=== PATIENT | female | born 1985 | race Caucasian/White ===

== ENCOUNTER 2018-10-10 00:35 | Inpatient (IN) | payer OTHER ==
[2018-10-10 00:59] VITALS: BMI 39.5
--- NOTE | 2018-10-10 02:16 | PDOC ---
History of Present Illness - General Chief Complaint: Shortness of Breath Stated Complaint: DIFFICULTY BREATHING Time Seen by Provider: 10/10/18 01:27 - History of Present Illness Initial Comments: 10/10/18 02:09 33 yo , 26 wga, confirmed TVUS with h/o asthma, and migraines who p/w SOB. Patient reports acute onset SOB x 1 day. + non-productive cough x 4 days. Reports subjective intermittent fevers x 3 days. Multiple episodes of non bilious, non bloody emesis, and loose watery stools beginning yesterday. Also endorses congestion. Nebulizer treatments today at 1700, and 1915, with no relief. Zithromax with no relief. Patient arrives from [place]. Received 1 g Ceftriaxone this evening. CXR ( 10/09/18) with left perihilar infiltrate. Flu negative. Winch Driver: Dr. Pandey. No complications with . Patient denies DALE, vision change, hematuria, vaginal bleeding/discharge, pelvic pain, CP, urinary complaints, abdominal pain, diarrhea, constipation, hematuria , BPR, lightheadedness, weakness, sensory changes. PMHx: as noted above ROS: as noted SHx: Denies tobacco use, IVDA. Allergies: Pen G- Hives, airway compromise Past History - Past Medical History Allergies/Adverse Reactions: Allergies Allergy/AdvReac Type Severity Reaction Status Date / Time Penicillins Allergy Verified 10/10/18 00:48 Home Medications: Ambulatory Orders Budesonide/Formeterol Fumarate [SYMBICORT 160/4.5mcg -] 1 inh PO BID 10/10/18 Asthma: Yes COPD: No - Suicide/Smoking/Psychosocial Hx Smoking History: Never smoked Review of Systems - Review of Systems Comments:: 10/10/18 02:10 GENERAL/CONSTITUTIONAL: No fever or chills. No weakness. HEAD, EYES, EARS, NOSE AND THROAT: No change in vision. No ear pain or discharge. No sore throat. CARDIOVASCULAR: No chest pain RESPIRATORY:+ cough, and SOB. No wheezing, or hemoptysis. GASTROINTESTINAL: + nausea, vomiting, diarrhea. No constipation. GENITOURINARY: No dysuria, frequency, or change in urination. MUSCULOSKELETAL: No joint or muscle swelling or pain. No neck or back pain. SKIN: No rash NEUROLOGIC: No headache, vertigo, loss of consciousness, or change in strength/ sensation. ENDOCRINE: No increased thirst. No abnormal weight change HEMATOLOGIC/LYMPHATIC: No anemia, easy bleeding, or history of blood clots. ALLERGIC/IMMUNOLOGIC: No hives or skin allergy. *Physical Exam - Vital Signs Last Vital Signs Temp Pulse Resp BP Pulse Ox 97.8 F 103 H 20 127/69 94 L 10/10/18 00:44 10/10/18 00:44 10/10/18 00:44 10/10/18 00:44 10/10/18 00:49 - Physical Exam Comments: 10/10/18 02:10 GENERAL: Awake, alert, and fully oriented, in no acute distress HEAD: No signs of trauma, normocephalic, atraumatic EYES: PERRLA, EOMI, sclera anicteric, conjunctiva clear ENT: Hearing grossly normal, nares patent, oropharynx clear without exudates. Moist mucosa NECK: Normal ROM, supple, no lymphadenopathy, JVD, or masses LUNGS: Diffuse exp rhonci/wheezing. Breathing labored. Speaks full sentences. HEART: Regular rate and rhythm, normal S1 and S2, no murmurs, rubs or gallops, peripheral pulses normal and equal bilaterally. ABDOMEN: Soft, nontender, normoactive bowel sounds. No guarding, no rebound. No masses. Neg CVA ttp. EXTREMITIES : Normal inspection, Normal range of motion, no edema. No clubbing or cyanosis. SKIN: Warm, Dry, normal turgor, no rashes or lesions noted Moderate Sedation - Procedure Monitoring Vital Signs: Procedure Monitoring Vital Signs Temperature 97.8 F 10/10/18 00:44 Pulse Rate 103 H 10/10/18 00:44 Respiratory Rate 20 10/10/18 00:44 Blood Pressure 127/69 10/10/18 00:44 O2 Sat by Pulse Oximetry (%) 94 L 10/10/18 00:49 ED Treatment Course - LABORATORY CBC & Chemistry Diagram: 10/10/18 02:55 10/10/18 02:55 Medical Decision Making - Medical Decision Making 10/10/18 02:29 33 yo , 26 wga, confirmed TVUS with h/o asthma, and migraines who p/w SOB, and non productive cough x 5 days. HR 103, 94 %O2 on RA, vitals otherwise wnl, AF, A&Ox3. Possible PNA with underlying acute asthma exacerbation. No evidence fluid/volume overload. Winch Driver Dr. Pandey. Ed Course: CBC, CMP, T&S, BHCG Call L&D for monitoring 4530 L&D contacted. Patient pending monitoring. Left Perihilar infiltrate seen on film 10/10/18 04:01 FHR 120-160's, lower midline 10/10/18 04:15 Microblogged symphony Per symphony patient will be admitted to [facility] unit Called [facility] crop nutrition scientist Dr. Harris [phone]. Awaiting call back. 10/10/18 04:[address] Pandey [phone].Dr. Mariano crop nutrition scientist. Awaiting call back Pt. Endorsed to Dr. Mariano 10/10/18 05:18 Patient will go to medicine unit. Accepted to medicine Dr. Chavis. *DC/Admit/Observation/Transfer Diagnosis at time of Disposition: Pneumonia affecting Qualifiers: Trimester: second trimester Qualified Code(s): O99.512 - Diseases of the respiratory system complicating , second trimester - Discharge Dispostion Condition at time of disposition: Stable Decision to Admit order: Yes - Referrals - Patient Instructions Additional Instructions: Please return to the emergency department with any new or worsening symptoms or concerns. Please follow up with your primary care physician within 72 hours. - Post Discharge Activity - Attestations Physician Attestion: 10/10/18 02:10 I attest to the information provided in this note.
[2018-10-10] MEDS ORDERED: ALBUTEROL SO4 2.5/IPRATROPIUM 0.5 INH SOL 3 ML VIAL.NEB. NEB ONE ×3 (02:27→05:59)
[2018-10-10 03:03] LABS: HEMATOCRIT 35.1 % (32.4-45.2); HEMOGLOBIN 12.4 GM/dL (10.7-15.3); LYMPH % 6.8 % (8-40); MCH 29.1 pg (25.7-33.7); MCHC 35.2 g/dl (32.0-36.0); MEAN CELL VOLUME 82.6 fl (80-96); MEAN PLT VOLUME 8.9 fl (7.5-11.1); NEUT % 92.2 % (42.8-82.8); PLATELET COUNT 124 K/MM3 (134-434); RBC 4.25 M/mm3 (3.60-5.2); WHITE BLOOD COUNT 5.7 K/mm3 (4.0-10.0)
[2018-10-10 03:17] LABS: INR 1.05 (0.83-1.09); PROTHROMBIN TIME (PATIENT) 12.4 SEC (9.7-13.0)
[2018-10-10 03:28] LABS: ALBUMIN 2.7 g/dl (3.4-5.0); ALK PHOS 67 U/L (45-117); ANION GAP 10 MMOL/L (8-16); BILIRUBIN,TOTAL 0.3 mg/dL (0.2-1); BLOOD UREA NITROGEN 6 mg/dL (7-18); CALCIUM 7.8 mg/dL (8.5-10.1); CHLORIDE 104 mmol/L (98-107); CO2 20 mmol/L (21-32); CREATININE 0.6 mg/dL (0.55-1.3); GLUCOSE,RANDOM 170 mg/dL (74-106); POTASSIUM 3.7 mmol/L (3.5-5.1); SGOT/AST 24 U/L (15-37); SGPT/ALT 30 U/L (13-61); SODIUM 134 mmol/L (136-145)
[2018-10-10 03:54] LABS: PLATELET ESTIMATE DECREASED
--- NOTE | 2018-10-10 03:54 | PDOC ---
Attending Attestation - Resident Resident Name: Trent Eden - ED Attending Attestation I have performed the following: I have examined & evaluated the patient, The case was reviewed & discussed with the resident, I agree w/resident's findings & plan, Exceptions are as noted - HPI HPI: 10/10/18 03:54 33F 26w preg sent from [facility] 12/14 PNA. Pt complaining of cough, sob, subj fevers for several days. Found to have a L perihilar pna on cxr at [place] - Physicial Exam PE: 10/10/18 03:55 Agree with exam as documented by the resident - Medical Decision Making 10/10/18 03:56 No acute OB issue, isolated CAP given Ctx by [facility]. Pt refusing repeat CXR here Will have L and D record heart tracing in ED for admission per primary physician
[2018-10-10] MEDS ORDERED: MAGNESIUM SULF 50% (8.12 MEQ/2 ML-1 GM VIAL) IVPB ONE (05:36)
[2018-10-10] MEDS ORDERED: CEFTRIAXONE 1,000 MG in DEXTROSE 5%-WATER - 50 ML IVPB ONE (05:47)
--- NOTE | 2018-10-10 05:50 | HP ---
CHIEF COMPLAINT: SOB, asthma exacerbation PCP: HISTORY OF PRESENT ILLNESS: 33 yo female with PMH Asthma, 26 weeks , presents with complaint of SOB that began 4 days ago. She states she has also had a nonproductive cough, with episodes of nausea and vomiting as well. She states that she has had intermittent fevers and chills over the last few days as well. The pt presented to [facility] emergency department initially was worked up and evaluated prior to presentation to our emergency department. Upon arrival pt was SOB in bed with audible wheezing. She states that she is feeling better than earlier, however became very SOB upon walking to the bathroom. She currently denies any chest pain or abdominal pain. ER course was notable for: (1) CXR from [facility] reviewed, possible infiltrate on the left (2) Afebrile, WBC wnl (3) Recent Travel: none PAST MEDICAL HISTORY: Asthma, 26 wks (uncomplicated so far) PAST SURGICAL HISTORY: Social History: Smoking: Denies Alcohol: Denies Drugs: Denies Family History: Allergies Penicillins Allergy (Verified 10/10/18 00:48) HOME MEDICATIONS: Home Medications Medication Instructions Recorded Budesonide/Formeterol Fumarate 1 inh PO BID 10/10/18 [SYMBICORT 160/4.5mcg -] REVIEW OF SYSTEMS CONSTITUTIONAL: Absent: fever, chills, diaphoresis, generalized weakness, malaise, loss of appetite, weight change HEENT: Absent: rhinorrhea, nasal congestion, throat pain, throat swelling, difficulty swallowing, mouth swelling, ear pain, eye pain, visual changes CARDIOVASCULAR: Absent: chest pain, syncope, palpitations, irregular heart rate, lightheadedness , peripheral edema RESPIRATORY: cough, shortness of breath dyspnea with exertion wheezing, Absent:, orthopnea, stridor, hemoptysis GASTROINTESTINAL: nausea, vomiting, diarrhea, Absent: abdominal pain, abdominal distension, constipation, melena, hematochezia GENITOURINARY: Absent: dysuria, frequency, urgency, hesitancy, hematuria, flank pain, genital pain MUSCULOSKELETAL: Absent: myalgia, arthralgia, joint swelling, back pain, neck pain SKIN: Absent: rash, itching, pallor HEMATOLOGIC/IMMUNOLOGIC: Absent: easy bleeding, easy bruising, lymphadenopathy, frequent infections ENDOCRINE: Absent: unexplained weight gain, unexplained weight loss, heat intolerance, cold intolerance NEUROLOGIC: Absent: headache, focal weakness or paresthesias, dizziness, unsteady gait, seizure, mental status changes, bladder or bowel incontinence PSYCHIATRIC: Absent: anxiety, depression, suicidal or homicidal ideation, hallucinations. PHYSICAL EXAMINATION Vital Signs - 24 hr 10/10/18 10/10/18 10/10/18 00:44 00:49 05:17 Temperature 97.8 F Pulse Rate 103 H Pulse Rate [ 96 H Apical] Respiratory 20 18 Rate Blood Pressure 127/69 Blood Pressure 114/50 L [Left Arm] O2 Sat by Pulse 94 L 94 L 98 Oximetry (%) GENERAL: Awake, alert, and fully oriented, in mild respiratory distress. HEAD: Normal with no signs of trauma. EYES: Pupils equal, round and reactive to light, sclera anicteric, conjunctiva clear. EARS, NOSE, THROAT: oropharynx clear without exudates. Moist mucous membranes. LUNGS: Diffuse expiratory wheezes noted HEART: Regular rate and rhythm, normal S1 and S2 without murmur ABDOMEN: Soft, nontender, not distended, normoactive bowel sounds, consistent with 26 wk LOWER EXTREMITIES: warm, well-perfused. No calf tenderness NEUROLOGICAL: Cranial nerves II-XII grossly intact. Normal speech Laboratory Results - last 24 hr 10/10/18 10/10/18 10/10/18 02:55 02:55 02:55 WBC 5.7 RBC 4.25 Hgb 12.4 Hct 35.1 MCV 82.6 MCH 29.1 MCHC 35.2 RDW 16.0 H Plt Count 124 L MPV 8.9 Absolute Neuts (auto) 5.3 Neutrophils % 92.2 H Neutrophils % (Manual) 90.3 H Band Neutrophils % 1.9 Lymphocytes % 6.8 L Lymphocytes % (Manual) 4.9 L Monocytes % 1.0 L Monocytes % (Manual) 3 L Eosinophils % 0.0 Eosinophils % (Manual) 0.0 Basophils % 0.0 Basophils % (Manual) 0.0 Myelocytes % (Man) 0 Promyelocytes % (Man) 0 Blast Cells % (Manual) 0 Nucleated RBC % 0 Metamyelocytes 0 Platelet Estimate Decreased PT with INR 12.40 INR 1.05 Sodium 134 L Potassium 3.7 Chloride 104 Carbon Dioxide 20 L Anion Gap 10 BUN 6 L Creatinine 0.6 Creat Clearance w eGFR > 60 Random Glucose 170 H Calcium 7.8 L Total Bilirubin 0.3 AST 24 ALT 30 Alkaline Phosphatase 67 Total Protein 6.0 L Albumin 2.7 L Blood Type Antibody Screen 10/10/18 02:55 WBC RBC Hgb Hct MCV MCH MCHC RDW Plt Count MPV Absolute Neuts (auto) Neutrophils % Neutrophils % (Manual) Band Neutrophils % Lymphocytes % Lymphocytes % (Manual) Monocytes % Monocytes % (Manual) Eosinophils % Eosinophils % (Manual) Basophils % Basophils % (Manual) Myelocytes % (Man) Promyelocytes % (Man) Blast Cells % (Manual) Nucleated RBC % Metamyelocytes Platelet Estimate PT with INR INR Sodium Potassium Chloride Carbon Dioxide Anion Gap BUN Creatinine Creat Clearance w eGFR Random Glucose Calcium Total Bilirubin AST ALT Alkaline Phosphatase Total Protein Albumin Blood Type O POSITIVE Antibody Screen Negative ASSESSMENT/PLAN: 33 yo female with PMH Asthma, 26 weeks , presents with complaint of SOB that began 4 days ago. She states she has also had a nonproductive cough, with episodes of nausea and vomiting as well. Acute Asthma Exacerbation -CXR from [facility] reviewed with possible infiltrate on left, Afebrile, WBC wnl -States she usually only requires her ventolin nebs when she has a URI -Azithromycin 500 mg IV Daily, Rocephin -2gm IV Mag Sulfate -Ventolin NEBs Q4 SEAN -SoluMedrol 80 mg IV Daily, will await further pulmonology recs -Sputum cultures -Pulmonology consult 26 wks - uncomplicated thus far Prophylaxis -Heparin 5000 units SQ TID FEN -none -monitor and replete -Regular diet Disposition Med/Surg Visit type - Emergency Visit Emergency Visit: Yes ED Registration Date: 10/10/18 Care time: The patient presented to the Emergency Department on the above date and was hospitalized for further evaluation of their emergent condition. - New Patient This patient is new to me today: Yes Date on this admission: 10/10/18 - Critical Care Critical Care patient: No
[2018-10-10] MEDS ORDERED: HEPARIN NA (PORCINE) 5,000 UNITS/ML 1ML VIAL SQ SCH (06:15)
--- NOTE | 2018-10-10 06:38 | PN ---
Teaching Attending Note Name of Resident: Dennis Manzo ATTENDING PHYSICIAN STATEMENT I saw and evaluated the patient. I reviewed the resident's note and discussed the case with the resident. I agree with the resident's findings and plan as documented. SUBJECTIVE: Please see resident note for further historical information; pt seen and examined at bedside. She is a ER to ER transfer from [facility] for CAP. She is hemodynamically stable and afebrile but requiring 2L O2. In summation she is 26 weeks and she developed a cough and SOB. She is asthmatic and is on inhaled steroid at home. She got azithromycin for this and continued to get worse so she went to the [facility] ER. She was transferred her for OB services. No compromise, etc. noted. She was wheezy and short of breath here. She got azithromycin at [facility]; will be given cef and azithro here. CURB 65 is 0 for the PNA but given the resulting hyperreactive airways from this she will need admitted. She just moved to the area and is interested in getting a pulomary specialist. Spoke with OBGYN and they are OK with our treatment plan. Will consult them. 10 sys ROS done and negative aside from HPI PMH and PSH reviewed FH asked and noncontributory Socially she denies smoking drinking and drugs and works at [facility] OBJECTIVE: NAD, resting in bed on 2L O2 via NC, VSS RRR s1/2 no mgr Lungs with scattered wheezes but acceptable air movement throughout NT; 26 wks, nontender CN2-12 wnl Speaking in complete sentences Pleasant mood with appropriate behavior Outside CXR from [facility] shows L-perihilar infiltrate consistent with PNA; reviewed image personally alongside their report. Labs reviewed ASSESSMENT AND PLAN: Mrs. Desai presents with CAP and asthma exacerbation; she is 26 weeks 1) CAP -L-hilar infiltrate noted; cultures pending for sputum and blood. IV ceftriaxone and azithro. Check flu and urine Ag -Incentive spirometry -Monitor on floor; PRN O2 (now 2L) 2) Acute asthma exacerbation -Likely driven by #1; no PFTs available -Consulting pulmonary medicine; she doesn't have a local museum specialist -Steroids (80 IV q6h), Albuterol. Giving a 2g infusion of magnesium -Could be made worse by -Monitor work of breathing; check ABG 3) -Consult OB; 26 weeks. Defer mangement to them. 4) Thrombocytopenia -SCDs for AC; monitor for OB related complications, check hepatitis C and HIV pannel -If worsens consider heme consult Full Code
--- NOTE | 2018-10-10 08:06 | CON.OBG ---
Consult - History of Present Illness History of Present Illness: Patient with chief complaint of shortness of breath. Patient denies leakage of fluid, vaginal bleeding or contractions. She reports normal movement. She was seen by Dr. Pandey yesterday in the office. 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 Right Hand. LEEP - Alcohol/Substance Use Hx Alcohol Use: No History of Substance Use: reports: None - Smoking History Smoking history: Never smoked Home Medications - Allergies Allergies/Adverse Reactions: Allergies Allergy/AdvReac Type Severity Reaction Status Date / Time Penicillins Allergy Verified 10/10/18 00:48 - Home Medications Home Medications: Ambulatory Orders Budesonide/Formeterol Fumarate [SYMBICORT 160/4.5mcg -] 1 inh PO BID 10/10/18 Family Disease History - Family Disease History Family History: Denies Review of Systems - Review of Systems Constitutional: reports: No Symptoms Cardiovascular: reports: Shortness of Breath Respiratory: reports: SOB, Wheezing Gastrointestinal: reports: Nausea, Vomiting Genitourinary: reports: No Symptoms Neurological: reports: No Symptoms Endocrine: reports: No Symptoms 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 Vital Signs: Vital Signs Temperature 97.8 F 10/10/18 00:44 Pulse Rate 96 H 10/10/18 05:17 Respiratory Rate 18 10/10/18 05:17 Blood Pressure 114/50 L 10/10/18 05:17 O2 Sat by Pulse Oximetry (%) 98 10/10/18 05:17 Constitutional: Yes: Well Nourished, Mild Distress (respiratory distress) HENT: Yes: WNL Cardiovascular: Yes: Regular Rate and Rhythm Respiratory: Yes: Wheezes Gastrointestinal: Yes: Soft Vaginal Exam: Yes: Normal Uterus: Yes: Other (soft, gravid, nontender; + FH by doppler) Edema: No Psychiatric: Yes: Alert, Oriented Labs: CBC, BMP 10/10/18 02:55 10/10/18 02:55 Assessment/Plan 33 yo HD # 1 admitted for pneuomnia and asthma exacerbation 1. No acute obstetrical complaints at this time - no need for obstetrical intervention 2. Reviewed labor precautions - she will let us know if she is having any issues 3. Plan for daily FH checks 4. Will continue to monitor
[2018-10-10 08:15] LABS: BASO % 0.1 % (0-2.0); HEMATOCRIT 35.1 % (32.4-45.2); HEMOGLOBIN 11.5 GM/dL (10.7-15.3); LYMPH % 7.9 % (8-40); MCH 27.3 pg (25.7-33.7); MCHC 32.9 g/dl (32.0-36.0); MEAN PLT VOLUME 8.8 fl (7.5-11.1); MONO % 2.1 % (3.8-10.2); NEUT % 89.9 % (42.8-82.8); PLATELET COUNT 126 K/MM3 (134-434); RBC 4.23 M/mm3 (3.60-5.2); RDW 15.6 % (11.6-15.6); WHITE BLOOD COUNT 5.7 K/mm3 (4.0-10.0)
[2018-10-10 08:43] LABS: ARTERIAL BLD GAS O2 SATURATION 97.9 % (90-98.9); ARTERIAL BLOOD GAS BASE EXCESS -3.4 meq/l (-2-2); ARTERIAL BLOOD GAS PCO2 29.9 mmHg (35-45); ARTERIAL BLOOD GAS pH 7.43 (7.35-7.45)
[2018-10-10 08:45] LABS: ALLENS TEST POSITIVE
[2018-10-10 08:56] LABS: ANION GAP 10 MMOL/L (8-16); BLOOD UREA NITROGEN 7 mg/dL (7-18); CALCIUM 7.9 mg/dL (8.5-10.1); CHLORIDE 105 mmol/L (98-107); CO2 20 mmol/L (21-32); CREATININE 0.5 mg/dL (0.55-1.3); GLUCOSE,RANDOM 140 mg/dL (74-106); MAGNESIUM 2.1 mg/dL (1.8-2.4); PHOSPHOROUS 2.4 mg/dL (2.5-4.9); POTASSIUM 3.8 mmol/L (3.5-5.1); SODIUM 135 mmol/L (136-145)
[2018-10-10] MEDS: ALBUTEROL SO4 0.083% IH SOL 2.5 MG/3 ML VIAL.NEB. NEB SCH ×4 (08:59→20:38)
[2018-10-10] MEDS: methylPREDNISolone NA SUCC 40 MG/1 ML VIAL IVPUSH SCH ×3 (09:01→21:07)
[2018-10-10] MEDS ORDERED: cefTRIAXone SODIUM 1 GM VIAL ONE (09:54)
[2018-10-10] MEDS ORDERED: DEXTROSE 5%-WATER - 50 ML IVPB ONE (09:54)
[2018-10-10] MEDS ORDERED: methylPREDNISolone NA SUCC 40 MG/1 ML VIAL IVPUSH SCH (10:00)
[2018-10-10] MEDS: AZITHROMYCIN IVPB 500 MG/250 ML BAG IVPB SCH (10:55)
[2018-10-10] MEDS: CEFTRIAXONE 1 GM in DEXTROSE 5%-WATER - 50 ML IVPB SCH (10:55)
--- NOTE | 2018-10-10 11:15 | CON.PULM ---
Consult Consult Specialty:: PULM/CCM Referred by:: Ebenezer Reason for Consultation:: SOB - History of Present Illness Chief Complaint: SOB History of Present Illness: 33 F, , 26 weeks gestation. History of Asthma since childhood. Last AE was 4 years ago. Never intubated. Unknown PEF. Not steroid dependent. Well maintained on Symbicort 160/4.5, Albuterol PRN. Never required or worked up for a biologic agent. Subjective fevers x 3 days, non bilious/non bloody emesis. Went to [facility] and apparently found to have a left perihilar infiltrate on CXR. She received Rocephin and Zithromax. Was in [place] 1 month ago. No VTE history. No hemoptysis. No specific history consistent with OSAS. 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 Right Hand. LEEP - Alcohol/Substance Use Hx Alcohol Use: No History of Substance Use: reports: None - Smoking History Smoking history: Never smoked Have you smoked in the past 12 months: No Home Medications - Allergies Allergies/Adverse Reactions: Allergies Allergy/AdvReac Type Severity Reaction Status Date / Time Penicillins Allergy Verified 10/10/18 00:48 - Home Medications Home Medications: Ambulatory Orders Budesonide/Formeterol Fumarate [SYMBICORT 160/4.5mcg -] 1 inh PO BID 10/10/18 Review of Systems - Review of Systems Constitutional: reports: Chills, Fever, Loss of Appetite, Malaise, Weakness. denies: Night Sweats, Unintentional Wgt. Loss Eyes: reports: No Symptoms HENT: reports: No Symptoms Neck: reports: No Symptoms Cardiovascular: reports: Shortness of Breath. denies: Chest Pain, Edema, Palpitations Respiratory: reports: Cough, PND, Snoring, SOB, SOB on Exertion, Wheezing. denies: Hemoptysis Gastrointestinal: reports: Diarrhea, Nausea, Vomiting. denies: Rectal Bleeding , Vomiting Blood Genitourinary: reports: No Symptoms Breasts: reports: No Symptoms Reported Musculoskeletal: reports: No Symptoms Integumentary: reports: No Symptoms Neurological: reports: No Symptoms Endocrine: reports: No Symptoms Hematology/Lymphatic: reports: No Symptoms Psychiatric: reports: No Symptoms Physical Exam Vital Sings: Vital Signs Temperature 97.8 F 10/10/18 00:44 Pulse Rate 96 H 10/10/18 05:17 Respiratory Rate 18 10/10/18 05:17 Blood Pressure 114/50 L 10/10/18 05:17 O2 Sat by Pulse Oximetry (%) 98 10/10/18 05:17 Constitutional: Yes: No Distress, Obese Eyes: Yes: Conjunctiva Clear, EOM Intact HENT: Yes: Atraumatic, Normocephalic Neck: Yes: Supple, Trachea Midline Cardiovascular: Yes: Tachycardia Respiratory: Yes: Cough, Diminished, On Nasal O2, Rhonchi, SOB, SOB on Exertion , Tachypnea, Wheezes. No: Accessory Muscle Use, Rales, Stridor ...Inspection: Yes: WNL ...Clubbing: No Gastrointestinal: Yes: Normal Bowel Sounds, Soft Renal/: Yes: WNL Musculoskeletal: Yes: WNL Extremities: Yes: WNL Edema: No Peripheral Pulses WNL: Yes Integumentary: Yes: WNL Neurological: Yes: WNL, Alert, Oriented ...Motor Strength: WNL Psychiatric: Yes: WNL, Alert, Oriented Labs: CBC, BMP 10/10/18 08:00 10/10/18 08:00 ABG Results ABG pH 7.43 (7.35-7.45) 10/10/18 08:30 ABG pCO2 at Pt Temp 29.9 mmHg (35-45) L 10/10/18 08:30 ABG pO2 at Pt Temp 107.0 mmHg (80-100) H 10/10/18 08:30 ABG HCO3 19.5 meq/L (22-26) L 10/10/18 08:30 ABG O2 Sat (Measured) 97.9 % (90-98.9) 10/10/18 08:30 ABG O2 Content 16.3 % vol (15-22) 10/10/18 08:30 ABG Base Excess -3.4 meq/l (-2-2) L 10/10/18 08:30 Problem List - Problems (1) Acute exacerbation of mild persistent extrinsic asthma Code(s): J45.31 - MILD PERSISTENT ASTHMA WITH (ACUTE) EXACERBATION (2) Pneumonia affecting Code(s): O99.519 - DISEASES OF THE RESP SYS COMP , UNSP TRIMESTER; J18.9 - PNEUMONIA, UNSPECIFIED ORGANISM Qualifiers: Trimester: second trimester Qualified Code(s): O99.512 - Diseases of the respiratory system complicating , second trimester; J18.9 - Pneumonia, unspecified organism Assessment/Plan Check sputum Check urine antigen O2 to maintain saturation >95% BD TX Medrol Agree with [place]hin/Zithromax VTE prophylaxis Daily PEF No smoking I am not concerned for hypercapnia so will not order an ABG Will follow Thank you Dr Brito
--- NOTE | 2018-10-10 11:15 | PN ---
Progress Note, Physician Chief Complaint: Mrs Desai says she is still short of breath but is much better. No cp or n/v. - Current Medication List Current Medications: Active Medications Albuterol Sulfate (Ventolin 0.083% Nebulizer Soln -) 1 amp NEB RQ4H SEAN Last Admin: 10/10/18 08:59 Dose: 1 amp Azithromycin (Zithromax 500mg Ivpb (Pre-Docked)) 500 mg in 250 mls @ 250 mls/ hr IVPB DAILY SEAN Ceftriaxone Sodium 1 gm/ (Dextrose) 50 mls @ 100 mls/hr IVPB DAILY SEAN Methylprednisolone Sodium Succinate (Solu-Medrol -) 80 mg IVPUSH Q6H-IV SEAN Last Admin: 10/10/18 09:01 Dose: 80 mg - Objective Vital Signs: Vital Signs Temperature 36.6 C 10/10/18 00:44 Pulse Rate 96 H 10/10/18 05:17 Respiratory Rate 18 10/10/18 05:17 Blood Pressure 114/50 L 10/10/18 05:17 O2 Sat by Pulse Oximetry (%) 98 10/10/18 05:17 Constitutional: Yes: Well Nourished, No Distress, Calm Cardiovascular: Yes: Regular Rate and Rhythm. No: Gallop, Murmur, Rub Respiratory: Yes: Regular, On Nasal O2, Rhonchi (slight, bibasilar). No: CTA Bilaterally, Rales, Wheezes Gastrointestinal: Yes: Normal Bowel Sounds, Soft. No: Distention, Tenderness Extremities: Yes: WNL Edema: No Labs: CBC, BMP 10/10/18 08:00 10/10/18 08:00 INR, PTT INR 1.05 (0.83-1.09) 10/10/18 02:55 Problem List - Problems (1) Acute exacerbation of mild persistent extrinsic asthma Assessment/Plan: -case d/w pulmonary -continue steroids, antibiotics, and ventolin -improving Code(s): J45.31 - MILD PERSISTENT ASTHMA WITH (ACUTE) EXACERBATION (2) Pneumonia affecting Assessment/Plan: -community acquired -currently afebrile -continue rocephin and zithromax -obstetrics following and appreciate assistance Code(s): O99.519 - DISEASES OF THE RESP SYS COMP , UNSP TRIMESTER; J18.9 - PNEUMONIA, UNSPECIFIED ORGANISM Qualifiers: Trimester: second trimester Qualified Code(s): O99.512 - Diseases of the respiratory system complicating , second trimester; J18.9 - Pneumonia, unspecified organism
--- NOTE | 2018-10-10 11:58 | EKG ---
Test Reason : Blood Pressure : / mmHG Vent. Rate : 097 BPM Atrial Rate : 097 BPM P-R Int : 120 ms QRS Dur : 086 ms QT Int : 378 ms P-R-T Axes : 023 065 004 degrees QTc Int : 480 ms NORMAL SINUS RHYTHM NONSPECIFIC ST AND T WAVE ABNORMALITY PROLONGED QT ABNORMAL ECG NO PREVIOUS ECGS AVAILABLE Confirmed by HUBERT COELLO MD ([id number]) on 10/10/2018 11:57:56 AM Referred By: Confirmed By:HUBERT COELLO MD
[2018-10-11] MEDS: methylPREDNISolone NA SUCC 40 MG/1 ML VIAL IVPUSH SCH ×4 (02:30→21:04)
[2018-10-11 06:07] LABS: HEP.C VIRUS AB 0.1 s/co ratio (0.0-0.9)
[2018-10-11 06:55] LABS: BASO % 0.2 % (0-2.0); HEMATOCRIT 34.5 % (32.4-45.2); HEMOGLOBIN 11.3 GM/dL (10.7-15.3); LYMPH % 9.3 % (8-40); MCH 27.3 pg (25.7-33.7); MCHC 32.6 g/dl (32.0-36.0); MEAN CELL VOLUME 83.6 fl (80-96); MEAN PLT VOLUME 8.9 fl (7.5-11.1); MONO % 3.3 % (3.8-10.2); NEUT % 87.2 % (42.8-82.8); PLATELET COUNT 134 K/MM3 (134-434); RBC 4.13 M/mm3 (3.60-5.2); RDW 15.9 % (11.6-15.6); WHITE BLOOD COUNT 7.7 K/mm3 (4.0-10.0)
[2018-10-11] MEDS: ALBUTEROL SO4 0.083% IH SOL 2.5 MG/3 ML VIAL.NEB. NEB SCH ×5 (07:19→20:36)
[2018-10-11 07:37] LABS: ANION GAP 9 MMOL/L (8-16); BLOOD UREA NITROGEN 8 mg/dL (7-18); CHLORIDE 107 mmol/L (98-107); CO2 22 mmol/L (21-32); CREATININE 0.6 mg/dL (0.55-1.3); GLUCOSE,RANDOM 158 mg/dL (74-106); MAGNESIUM 2.3 mg/dL (1.8-2.4); PHOSPHOROUS 2.6 mg/dL (2.5-4.9); POTASSIUM 4.1 mmol/L (3.5-5.1); SODIUM 138 mmol/L (136-145)
[2018-10-11] MEDS ORDERED: cefTRIAXone SODIUM 1 GM VIAL ONE (09:15)
[2018-10-11] MEDS ORDERED: DEXTROSE 5%-WATER - 50 ML IVPB ONE (09:15)
[2018-10-11] MEDS: CEFTRIAXONE 1 GM in DEXTROSE 5%-WATER - 50 ML IVPB SCH (09:34)
[2018-10-11] MEDS: AZITHROMYCIN IVPB 500 MG/250 ML BAG IVPB SCH (09:34)
--- NOTE | 2018-10-11 11:14 | PN ---
Progress Note (short form) - Note Progress Note: PULMONARY OOB TO CHAIR PRESENT MILD DYSPNEA WITH COUGH VSS/AFEBRILE ANICTERIC END EXP WHEEZE ANTERIOR/POSTERIOR S1S2 BS+/26TH WEEK PREG NO EDEMA LABS/MEDS/NOTES/MICRO REVIEWED (1) Acute exacerbation of mild persistent extrinsic asthma Code(s): J45.31 - MILD PERSISTENT ASTHMA WITH (ACUTE) EXACERBATION (2) Pneumonia affecting Code(s): O99.519 - DISEASES OF THE RESP SYS COMP , UNSP TRIMESTER; J18.9 - PNEUMONIA, UNSPECIFIED ORGANISM Qualifiers: Trimester: second trimester Qualified Code(s): O99.512 - Diseases of the respiratory system complicating , second trimester; J18.9 - Pneumonia, unspecified organism Assessment/Plan O2 to maintain saturation >95% BD TX Medrol IV same dose Agree with Rocpehin/Zithromax VTE prophylaxis Daily PEF Will follow Malvin PALENCIA MD
--- NOTE | 2018-10-11 11:52 | PN ---
Progress Note, Physician Chief Complaint: Mrs Desai says she is feeling better. Having better air movement but wheezing. No cp or n/v. - Current Medication List Current Medications: Active Medications Albuterol Sulfate (Ventolin 0.083% Nebulizer Soln -) 1 amp NEB RQID [facility] Last Admin: 10/11/18 07:20 Dose: 1 amp Azithromycin (Zithromax 500mg Ivpb (Pre-Docked)) 500 mg in 250 mls @ 250 mls/ hr IVPB DAILY [facility] Last Admin: 10/11/18 09:34 Dose: 250 mls/hr Ceftriaxone Sodium 1 gm/ (Dextrose) 50 mls @ 100 mls/hr IVPB DAILY [facility] Last Admin: 10/11/18 09:34 Dose: 100 mls/hr Methylprednisolone Sodium Succinate (Solu-Medrol -) 80 mg IVPUSH Q6H-IV [facility] Last Admin: 10/11/18 09:34 Dose: 80 mg - Objective Vital Signs: Vital Signs Temperature 36.3 C L 10/11/18 09:41 Pulse Rate 93 H 10/11/18 09:41 Respiratory Rate 20 10/11/18 10:00 Blood Pressure 129/61 10/11/18 09:41 O2 Sat by Pulse Oximetry (%) 100 10/11/18 10:00 Constitutional: Yes: Well Nourished, No Distress, Calm Cardiovascular: Yes: Regular Rate and Rhythm. No: Gallop, Murmur, Rub Respiratory: Yes: Regular, On Nasal O2, Wheezes. No: CTA Bilaterally, Rales, Rhonchi Gastrointestinal: Yes: Normal Bowel Sounds, Soft. No: Distention, Tenderness Extremities: Yes: WNL Edema: No Labs: CBC, BMP 10/11/18 06:20 10/11/18 06:20 INR, PTT INR 1.05 (0.83-1.09) 10/10/18 02:55 Problem List - Problems (1) Acute exacerbation of mild persistent extrinsic asthma Code(s): J45.31 - MILD PERSISTENT ASTHMA WITH (ACUTE) EXACERBATION (2) Pneumonia affecting Code(s): O99.519 - DISEASES OF THE RESP SYS COMP , UNSP TRIMESTER; J18.9 - PNEUMONIA, UNSPECIFIED ORGANISM Qualifiers: Trimester: second trimester Qualified Code(s): O99.512 - Diseases of the respiratory system complicating , second trimester; J18.9 - Pneumonia, unspecified organism Assessment/Plan (1) Acute exacerbation of mild persistent extrinsic asthma Assessment/Plan: -pulmonary note reviewed -continue steroids, antibiotics, and ventolin -improving Code(s): J45.31 - MILD PERSISTENT ASTHMA WITH (ACUTE) EXACERBATION (2) Pneumonia affecting Assessment/Plan: -community acquired -afebril x24 hours -rocephin and zithromax day 2 -change to oral antibiotics when ready for discharge Code(s): O99.519 - DISEASES OF THE RESP SYS COMP , UNSP TRIMESTER; J18.9 - PNEUMONIA, UNSPECIFIED ORGANISM Qualifiers: Trimester: second trimester Qualified Code(s): O99.512 - Diseases of the respiratory system complicating , second trimester; J18.9 - Pneumonia, unspecified organism
--- NOTE | 2018-10-11 19:41 | PN ---
Progress Note (short form) - Note Progress Note: ob folow up 830 am feels better today , has no shortness of breath, no wheeze , coughing good fm, no contraction, no bleeding heart present Last Vital Signs Temp Pulse Resp BP Pulse Ox 97.5 F L 69 18 129/69 100 10/11/18 15:21 10/11/18 15:21 10/11/18 17:31 10/11/18 15:21 10/11/18 17:31 CBC, BMP 10/11/18 06:20 10/11/18 06:20 impression asthma ,improving, no hypoxia plan cont. present regimen heart auscultation daily
[2018-10-11] MEDS ORDERED: PT OWN MED DRAWER 7, Y5N ONE (21:01)
[2018-10-11] MEDS: MELATONIN 1 MG TABLET PO PRN (22:07)
[2018-10-12] MEDS: methylPREDNISolone NA SUCC 40 MG/1 ML VIAL IVPUSH SCH ×4 (02:50→22:25)
[2018-10-12] MEDS ORDERED: ALBUTEROL SO4 0.083% IH SOL 2.5 MG/3 ML VIAL.NEB. NEB ONE (03:11)
[2018-10-12 08:22] LABS: BASO % 0.1 % (0-2.0); HEMATOCRIT 34.9 % (32.4-45.2); HEMOGLOBIN 11.4 GM/dL (10.7-15.3); LYMPH % 10.8 % (8-40); MCH 27.5 pg (25.7-33.7); MCHC 32.8 g/dl (32.0-36.0); MEAN CELL VOLUME 83.9 fl (80-96); MONO % 2.5 % (3.8-10.2); NEUT % 86.6 % (42.8-82.8); PLATELET COUNT 143 K/MM3 (134-434); RBC 4.16 M/mm3 (3.60-5.2); RDW 16.2 % (11.6-15.6); WHITE BLOOD COUNT 9.5 K/mm3 (4.0-10.0)
[2018-10-12] MEDS: ALBUTEROL SO4 0.083% IH SOL 2.5 MG/3 ML VIAL.NEB. NEB SCH ×4 (08:42→19:40)
[2018-10-12] MEDS ORDERED: cefTRIAXone SODIUM 1 GM VIAL ONE (08:44)
[2018-10-12] MEDS ORDERED: DEXTROSE 5%-WATER - 50 ML IVPB ONE (08:44)
[2018-10-12 08:52] LABS: ANION GAP 12 MMOL/L (8-16); BLOOD UREA NITROGEN 11 mg/dL (7-18); CALCIUM 8.4 mg/dL (8.5-10.1); CHLORIDE 106 mmol/L (98-107); CO2 21 mmol/L (21-32); CREATININE 0.8 mg/dL (0.55-1.3); GLUCOSE,RANDOM 137 mg/dL (74-106); MAGNESIUM 2.2 mg/dL (1.8-2.4); PHOSPHOROUS 3.4 mg/dL (2.5-4.9); POTASSIUM 4.2 mmol/L (3.5-5.1); SODIUM 138 mmol/L (136-145)
[2018-10-12] MEDS: AZITHROMYCIN IVPB 500 MG/250 ML BAG IVPB SCH (09:51)
[2018-10-12] MEDS: CEFTRIAXONE 1 GM in DEXTROSE 5%-WATER - 50 ML IVPB SCH (09:51)
--- NOTE | 2018-10-12 11:26 | PN ---
Progress Note (short form) - Note Progress Note: PULMONARY OOB TO CHAIR COUGH/WITH CHEST TIGHTNESS IMPROVED BUT PERSISTS VSS/AFEBRILE ANICTERIC END EXP WHEEZE ANTERIOR/POSTERIOR S1S2 BS+/26TH WEEK PREG NO EDEMA LABS/MEDS/NOTES/MICRO REVIEWED (1) Acute exacerbation of mild persistent extrinsic asthma Code(s): J45.31 - MILD PERSISTENT ASTHMA WITH (ACUTE) EXACERBATION (2) Pneumonia affecting Code(s): O99.519 - DISEASES OF THE RESP SYS COMP , UNSP TRIMESTER; J18.9 - PNEUMONIA, UNSPECIFIED ORGANISM Qualifiers: Trimester: second trimester Qualified Code(s): O99.512 - Diseases of the respiratory system complicating , second trimester; J18.9 - Pneumonia, unspecified organism Assessment/Plan O2 to maintain saturation >95% BD TX Medrol IV dose reduced Rocpehin/Zithromax VTE prophylaxis Will follow Malvin PALENCIA MD
--- NOTE | 2018-10-12 12:33 | PN ---
Progress Note, Physician Chief Complaint: Mrs Desai says she is improving. Says her cough is less and the wheezing is resolving. No cp or n/v. - Current Medication List Current Medications: Active Medications Albuterol Sulfate (Ventolin 0.083% Nebulizer Soln -) 1 amp NEB RQID [facility] Last Admin: 10/12/18 12:00 Dose: 1 amp Azithromycin (Zithromax 500mg Ivpb (Pre-Docked)) 500 mg in 250 mls @ 250 mls/ hr IVPB DAILY [facility] Last Admin: 10/12/18 09:51 Dose: 250 mls/hr Ceftriaxone Sodium 1 gm/ (Dextrose) 50 mls @ 100 mls/hr IVPB DAILY [facility] Last Admin: 10/12/18 09:51 Dose: 100 mls/hr Melatonin (Melatonin) 3 mg PO HS PRN PRN Reason: INSOMNIA Last Admin: 10/11/18 22:07 Dose: 3 mg Methylprednisolone Sodium Succinate (Solu-Medrol -) 40 mg IVPUSH Q6H-IV [facility] - Objective Vital Signs: Vital Signs Temperature 36.5 C 10/12/18 06:00 Pulse Rate 82 10/12/18 06:00 Respiratory Rate 20 10/12/18 06:00 Blood Pressure 120/76 10/12/18 06:00 O2 Sat by Pulse Oximetry (%) 100 10/11/18 22:00 Constitutional: Yes: Well Nourished, No Distress, Calm Cardiovascular: Yes: Regular Rate and Rhythm. No: Gallop, Murmur, Rub Respiratory: Yes: Regular, CTA Bilaterally, On Nasal O2. No: Rales, Rhonchi, Wheezes Gastrointestinal: Yes: Normal Bowel Sounds, Soft. No: Distention, Tenderness Extremities: Yes: WNL Edema: No Labs: CBC, BMP 10/12/18 08:00 10/12/18 08:00 INR, PTT INR 1.05 (0.83-1.09) 10/10/18 02:55 Problem List - Problems (1) Acute exacerbation of mild persistent extrinsic asthma Code(s): J45.31 - MILD PERSISTENT ASTHMA WITH (ACUTE) EXACERBATION (2) Pneumonia affecting Code(s): O99.519 - DISEASES OF THE RESP SYS COMP , UNSP TRIMESTER; J18.9 - PNEUMONIA, UNSPECIFIED ORGANISM Qualifiers: Trimester: second trimester Qualified Code(s): O99.512 - Diseases of the respiratory system complicating , second trimester; J18.9 - Pneumonia, unspecified organism Assessment/Plan (1) Acute exacerbation of mild persistent extrinsic asthma Assessment/Plan: -pulmonary note reviewed -continue steroids, antibiotics, and ventolin -steroids tapered today Code(s): J45.31 - MILD PERSISTENT ASTHMA WITH (ACUTE) EXACERBATION (2) Pneumonia affecting Assessment/Plan: -community acquired -remains afebrile -rocephin and zithromax day 3 -change to oral antibiotics when ready for discharge Code(s): O99.519 - DISEASES OF THE RESP SYS COMP , UNSP TRIMESTER; J18.9 - PNEUMONIA, UNSPECIFIED ORGANISM Qualifiers: Trimester: second trimester Qualified Code(s): O99.512 - Diseases of the respiratory system complicating , second trimester; J18.9 - Pneumonia, unspecified organism
--- NOTE | 2018-10-12 21:31 | PN ---
Progress Note (SOAP) - Subjective Chief Complaint: 33yo P0 with at EGA 26+ weeks admitted with pneumonia and asthma exacerbation. History of Present Illness: Pt is now on asthma meds, abx and steroid taper. She has been walking in the hallway "for exercise" when I came in. The pt is reporting that she feels better but still has cough and SOB on exertion. She reports good FM, no LOF, no VB, no contractions. - Current Medications Current Medications: Active Medications Albuterol Sulfate (Ventolin 0.083% Nebulizer Soln -) 1 amp NEB RQID [facility] Last Admin: 10/12/18 19:40 Dose: 1 amp Azithromycin (Zithromax 500mg Ivpb (Pre-Docked)) 500 mg in 250 mls @ 250 mls/ hr IVPB DAILY [facility] Last Admin: 10/12/18 09:51 Dose: 250 mls/hr Ceftriaxone Sodium 1 gm/ (Dextrose) 50 mls @ 100 mls/hr IVPB DAILY [facility] Last Admin: 10/12/18 09:51 Dose: 100 mls/hr Melatonin (Melatonin) 3 mg PO HS PRN PRN Reason: INSOMNIA Last Admin: 10/11/18 22:07 Dose: 3 mg Methylprednisolone Sodium Succinate (Solu-Medrol -) 40 mg IVPUSH Q6H-IV [facility] Last Admin: 10/12/18 15:23 Dose: 40 mg - Objective Vital Signs: Vital Signs Temperature 98.1 F 10/12/18 10:00 Pulse Rate 73 10/12/18 10:00 Respiratory Rate 18 10/12/18 10:00 Blood Pressure 156/70 10/12/18 10:00 O2 Sat by Pulse Oximetry (%) 100 10/12/18 18:00 Constitutional: Yes: No Distress, Calm, Obese Eyes: Yes: WNL, Conjunctiva Clear, EOM Intact HENT: Yes: Atraumatic, Normocephalic Neck: Yes: Supple, Trachea Midline Cardiovascular: Yes: Regular Rate and Rhythm Respiratory: Yes: Regular, Cough, On Nasal O2, Rhonchi, SOB on Exertion, Other ( good air movement bilateral) Gastrointestinal: Yes: Normal Bowel Sounds, Soft, Abdomen, Obese, Other (garvid uterus, NT) Genitourinary: Yes: WNL Extremities: Yes: WNL Edema: No Integumentary: Yes: WNL Neurological: Yes: WNL, Alert, Oriented ...Motor Strength: Yes: WNL Psychiatric: Yes: WNL, Alert, Oriented Labs Lab Results: CBC, BMP 10/12/18 08:00 10/12/18 08:00 Problem List - Problems (1) with 26 completed weeks gestation Assessment/Plan: No s/sx's of PTL. Continue vitamins Pt w/o limited mobility. Will not start anticoagulation at this time. NST is difficult to do. Plan NST or FHR checks w/Doppler Code(s): Z3A.26 - 26 WEEKS GESTATION OF (2) Acute exacerbation of mild persistent extrinsic asthma Assessment/Plan: Pt reports improvement. Continue mgt per medical team Code(s): J45.31 - MILD PERSISTENT ASTHMA WITH (ACUTE) EXACERBATION (3) Pneumonia affecting Assessment/Plan: Pt reports improvement. Continue mgt per medical team Code(s): O99.519 - DISEASES OF THE RESP SYS COMP , UNSP TRIMESTER; J18.9 - PNEUMONIA, UNSPECIFIED ORGANISM Qualifiers: Trimester: third trimester Qualified Code(s): O99.513 - Diseases of the respiratory system complicating , third trimester; J18.9 - Pneumonia, unspecified organism
[2018-10-12] MEDS: MELATONIN 1 MG TABLET PO PRN (22:27)
[2018-10-12] MEDS ORDERED: PT OWN MED DRAWER 7, Y5N ONE (22:27)
[2018-10-13] MEDS: methylPREDNISolone NA SUCC 40 MG/1 ML VIAL IVPUSH SCH ×4 (04:01→21:32)
[2018-10-13 07:12] LABS: HEMOGLOBIN 10.6 GM/dL (10.7-15.3); MCH 27.2 pg (25.7-33.7); MCHC 32.3 g/dl (32.0-36.0); MEAN CELL VOLUME 84.3 fl (80-96); MONO % 4.1 % (3.8-10.2); NEUT % 82.9 % (42.8-82.8); PLATELET COUNT 142 K/MM3 (134-434); RBC 3.91 M/mm3 (3.60-5.2); RDW 15.9 % (11.6-15.6); WHITE BLOOD COUNT 9.1 K/mm3 (4.0-10.0)
[2018-10-13 08:34] LABS: ANION GAP 12 MMOL/L (8-16); BLOOD UREA NITROGEN 12 mg/dL (7-18); CALCIUM 8.2 mg/dL (8.5-10.1); CHLORIDE 109 mmol/L (98-107); CO2 23 mmol/L (21-32); CREATININE 0.6 mg/dL (0.55-1.3); GLUCOSE,RANDOM 132 mg/dL (74-106); PHOSPHOROUS 3.7 mg/dL (2.5-4.9); POTASSIUM 4.7 mmol/L (3.5-5.1); SODIUM 144 mmol/L (136-145)
[2018-10-13] MEDS: ALBUTEROL SO4 0.083% IH SOL 2.5 MG/3 ML VIAL.NEB. NEB SCH ×4 (08:55→20:54)
[2018-10-13] MEDS ORDERED: PT OWN MED DRAWER 7, Y5N ONE (08:56)
[2018-10-13] MEDS ORDERED: cefTRIAXone SODIUM 1 GM VIAL ONE (08:56)
[2018-10-13] MEDS ORDERED: DEXTROSE 5%-WATER - 50 ML IVPB ONE (08:56)
[2018-10-13] MEDS: CEFTRIAXONE 1 GM in DEXTROSE 5%-WATER - 50 ML IVPB SCH (09:06)
[2018-10-13] MEDS: AZITHROMYCIN IVPB 500 MG/250 ML BAG IVPB SCH (09:06)
[2018-10-13] MEDS: PRENATAL VITAMINS W/ FOLIC ACID TABLET (FP) PO SCH (09:07)
--- NOTE | 2018-10-13 11:54 | PN ---
Progress Note, Physician Chief Complaint: Mrs Desai says she is doing well. Still with a cough but her breathing is much improved. No cp or n/v. - Current Medication List Current Medications: Active Medications Albuterol Sulfate (Ventolin 0.083% Nebulizer Soln -) 1 amp NEB RQID [facility] Last Admin: 10/13/18 08:55 Dose: 1 amp Azithromycin (Zithromax 500mg Ivpb (Pre-Docked)) 500 mg in 250 mls @ 250 mls/ hr IVPB DAILY [facility] Last Admin: 10/13/18 09:06 Dose: 250 mls/hr Ceftriaxone Sodium 1 gm/ (Dextrose) 50 mls @ 100 mls/hr IVPB DAILY [facility] Last Admin: 10/13/18 09:06 Dose: 100 mls/hr Melatonin (Melatonin) 3 mg PO HS PRN PRN Reason: INSOMNIA Last Admin: 10/12/18 22:27 Dose: 3 mg Methylprednisolone Sodium Succinate (Solu-Medrol -) 40 mg IVPUSH Q6H-IV [facility] Last Admin: 10/13/18 09:06 Dose: 40 mg Multivit/Folic Acid/Iron ( Vitamins (Sjr) -) 1 tab PO DAILY [facility] Last Admin: 10/13/18 09:07 Dose: 1 tab - Objective Vital Signs: Vital Signs Temperature 36.5 C 10/13/18 04:23 Pulse Rate 82 10/13/18 04:23 Respiratory Rate 20 10/13/18 04:23 Blood Pressure 113/83 10/13/18 04:23 O2 Sat by Pulse Oximetry (%) 100 10/12/18 22:00 Constitutional: Yes: Well Nourished, No Distress, Calm Cardiovascular: Yes: Regular Rate and Rhythm. No: Gallop, Murmur, Rub Respiratory: Yes: Regular, CTA Bilaterally. No: On Nasal O2, Rales, Rhonchi, Wheezes Gastrointestinal: Yes: Normal Bowel Sounds, Soft. No: Distention, Tenderness Extremities: Yes: WNL Edema: No Labs: CBC, BMP 10/13/18 06:30 10/13/18 06:30 INR, PTT INR 1.05 (0.83-1.09) 10/10/18 02:55 Problem List - Problems (1) Acute exacerbation of mild persistent extrinsic asthma Code(s): J45.31 - MILD PERSISTENT ASTHMA WITH (ACUTE) EXACERBATION (2) Pneumonia affecting Code(s): O99.519 - DISEASES OF THE RESP SYS COMP , UNSP TRIMESTER; J18.9 - PNEUMONIA, UNSPECIFIED ORGANISM Qualifiers: Trimester: third trimester Qualified Code(s): O99.513 - Diseases of the respiratory system complicating , third trimester; J18.9 - Pneumonia, unspecified organism Assessment/Plan (1) Acute exacerbation of mild persistent extrinsic asthma Assessment/Plan: -pulmonary note reviewed -continue steroids, antibiotics, and ventolin -if cleared by pulmonary, can discharge today -will follow up pulmonary recommendations Code(s): J45.31 - MILD PERSISTENT ASTHMA WITH (ACUTE) EXACERBATION (2) Pneumonia affecting Assessment/Plan: -community acquired -remains afebrile -rocephin and zithromax day 4 -change to oral antibiotics when ready for discharge Code(s): O99.519 - DISEASES OF THE RESP SYS COMP , UNSP TRIMESTER; J18.9 - PNEUMONIA, UNSPECIFIED ORGANISM Qualifiers: Trimester: second trimester Qualified Code(s): O99.512 - Diseases of the respiratory system complicating , second trimester; J18.9 - Pneumonia, unspecified organism
--- NOTE | 2018-10-13 12:35 | PN ---
Progress Note (SOAP) - Subjective Chief Complaint: 33yo P0 with at EGA 26+ weeks admitted with pneumonia and asthma exacerbation. History of Present Illness: Pt is now on asthma meds, abx and steroid taper. She reports feeling better. Still coughing but only SOB with exertion. Trying to get some exercise by walking in the hallway a few times a day. She reports good FM, no LOF, no VB, no contractions. - Current Medications Current Medications: Active Medications Albuterol Sulfate (Ventolin 0.083% Nebulizer Soln -) 1 amp NEB RQID [facility] Last Admin: 10/13/18 08:55 Dose: 1 amp Azithromycin (Zithromax 500mg Ivpb (Pre-Docked)) 500 mg in 250 mls @ 250 mls/ hr IVPB DAILY [facility] Last Admin: 10/13/18 09:06 Dose: 250 mls/hr Ceftriaxone Sodium 1 gm/ (Dextrose) 50 mls @ 100 mls/hr IVPB DAILY [facility] Last Admin: 10/13/18 09:06 Dose: 100 mls/hr Melatonin (Melatonin) 3 mg PO HS PRN PRN Reason: INSOMNIA Last Admin: 10/12/18 22:27 Dose: 3 mg Methylprednisolone Sodium Succinate (Solu-Medrol -) 40 mg IVPUSH Q6H-IV [facility] Last Admin: 10/13/18 09:06 Dose: 40 mg Multivit/Folic Acid/Iron ( Vitamins (Sjr) -) 1 tab PO DAILY [facility] Last Admin: 10/13/18 09:07 Dose: 1 tab - Objective Vital Signs: Vital Signs Temperature 97.7 F 10/13/18 04:23 Pulse Rate 82 10/13/18 04:23 Respiratory Rate 20 10/13/18 04:23 Blood Pressure 113/83 10/13/18 04:23 O2 Sat by Pulse Oximetry (%) 100 10/12/18 22:00 Constitutional: Yes: No Distress, Calm, Obese Eyes: Yes: Conjunctiva Clear, EOM Intact HENT: Yes: Atraumatic, Normocephalic Neck: Yes: Supple, Trachea Midline Cardiovascular: Yes: Regular Rate and Rhythm Respiratory: Yes: Regular, CTA Bilaterally (coarse), Cough Gastrointestinal: Yes: Soft, Other (Gravid) Musculoskeletal: Yes: WNL Extremities: Yes: WNL Peripheral Pulses WNL: No Edema: No Edema: LLE: Trace, RLE: Trace Integumentary: Yes: WNL Neurological: Yes: WNL, Alert, Oriented ...Motor Strength: Yes: WNL Psychiatric: Yes: Alert, Oriented Labs Lab Results: CBC, BMP 10/13/18 06:30 10/13/18 06:30 Problem List - Problems (1) with 26 completed weeks gestation Assessment/Plan: No s/sx's of PTL. Continue vitamins Pt ambulating. Will not start anticoagulation at this time. Cont NST or FHR checks w/Doppler. We discussed the pt's plan to travel by air next week. We discussed risks of air travel and I also advised to avoid travel if she still has SOB. Code(s): Z3A.26 - 26 WEEKS GESTATION OF (2) Acute exacerbation of mild persistent extrinsic asthma Assessment/Plan: Pt reports improvement. Continue mgt per medical team Code(s): J45.31 - MILD PERSISTENT ASTHMA WITH (ACUTE) EXACERBATION (3) Pneumonia affecting Assessment/Plan: Pt reports improvement. Continue mgt per medical team Code(s): O99.519 - DISEASES OF THE RESP SYS COMP , UNSP TRIMESTER; J18.9 - PNEUMONIA, UNSPECIFIED ORGANISM Qualifiers: Trimester: third trimester Qualified Code(s): O99.513 - Diseases of the respiratory system complicating , third trimester; J18.9 - Pneumonia, unspecified organism
--- NOTE | 2018-10-13 13:46 | PN ---
Progress Note (short form) - Note Progress Note: PULMONARY OOB TO CHAIR COUGH/WITH CHEST TIGHTNESS IMPROVED BUT PERSISTS NASAL CONGESTION WITH GREENISH DISCHARGE VSS/AFEBRILE ANICTERIC CLEAR B/L S1S2 BS+/26TH WEEK PREG NO EDEMA LABS/MEDS/NOTES/MICRO REVIEWED (1) Acute exacerbation of mild persistent extrinsic asthma Code(s): J45.31 - MILD PERSISTENT ASTHMA WITH (ACUTE) EXACERBATION (2) Pneumonia affecting Code(s): O99.519 - DISEASES OF THE RESP SYS COMP , UNSP TRIMESTER; J18.9 - PNEUMONIA, UNSPECIFIED ORGANISM Qualifiers: Trimester: second trimester Qualified Code(s): O99.512 - Diseases of the respiratory system complicating , second trimester; J18.9 - Pneumonia, unspecified organism Assessment/Plan O2 to maintain saturation >95% BD TX Medrol IV dose reduced Rocpehin/Zithromax VTE prophylaxis Discharge AM if remains stable Will follow Malvin PALENCIA MD
[2018-10-13] MEDS: MELATONIN 1 MG TABLET PO PRN (21:32)
[2018-10-14] MEDS: methylPREDNISolone NA SUCC 40 MG/1 ML VIAL IVPUSH SCH ×2 (03:09→09:35)
[2018-10-14] MEDS: ALBUTEROL SO4 0.083% IH SOL 2.5 MG/3 ML VIAL.NEB. NEB SCH ×2 (08:02→11:31)
[2018-10-14] MEDS ORDERED: PT OWN MED DRAWER 7, Y5N ONE (09:26)
[2018-10-14] MEDS: PRENATAL VITAMINS W/ FOLIC ACID TABLET (FP) PO SCH (09:35)
--- NOTE | 2018-10-14 10:44 | PN ---
Progress Note (SOAP) - Subjective Chief Complaint: 33yo P0 with at EGA 26+ weeks admitted with pneumonia and asthma exacerbation. History of Present Illness: Pt is now feeling better. Still coughing but able to ambulate w/o oxygen. She reports good FM, no LOF, no VB, no contractions. - Current Medications Current Medications: Active Medications Albuterol Sulfate (Ventolin 0.083% Nebulizer Soln -) 1 amp NEB RQID [facility] Last Admin: 10/14/18 08:02 Dose: 1 amp Azithromycin (Zithromax 500mg Ivpb (Pre-Docked)) 500 mg in 250 mls @ 250 mls/ hr IVPB DAILY [facility] Last Admin: 10/13/18 09:06 Dose: 250 mls/hr Ceftriaxone Sodium 1 gm/ (Dextrose) 50 mls @ 100 mls/hr IVPB DAILY [facility] Last Admin: 10/13/18 09:06 Dose: 100 mls/hr Melatonin (Melatonin) 3 mg PO HS PRN PRN Reason: INSOMNIA Last Admin: 10/13/18 21:32 Dose: 3 mg Methylprednisolone Sodium Succinate (Solu-Medrol -) 40 mg IVPUSH Q6H-IV [facility] Last Admin: 10/14/18 09:35 Dose: 40 mg Multivit/Folic Acid/Iron ( Vitamins (Sjr) -) 1 tab PO DAILY [facility] Last Admin: 10/14/18 09:35 Dose: 1 tab - Objective Vital Signs: Vital Signs Temperature 97.7 F 10/14/18 06:27 Pulse Rate 78 10/14/18 06:27 Respiratory Rate 19 10/14/18 06:27 Blood Pressure 119/61 10/14/18 06:27 O2 Sat by Pulse Oximetry (%) 98 10/14/18 02:00 Constitutional: Yes: No Distress, Calm Eyes: Yes: Conjunctiva Clear, EOM Intact HENT: Yes: Atraumatic, Normocephalic Neck: Yes: Supple, Trachea Midline Cardiovascular: Yes: Regular Rate and Rhythm Respiratory: Yes: Regular, CTA Bilaterally Gastrointestinal: Yes: Normal Bowel Sounds, Soft Genitourinary: Yes: WNL Extremities: Yes: WNL Peripheral Pulses WNL: No Edema: No Integumentary: Yes: WNL Neurological: Yes: Alert, Oriented ...Motor Strength: Yes: WNL Psychiatric: Yes: Alert, Oriented Labs Lab Results: CBC, BMP 10/13/18 06:30 10/13/18 06:30 Problem List - Problems (1) with 26 completed weeks gestation Assessment/Plan: No s/sx's of PTL. Continue vitamins Pt ambulating more. NST reviewed and is reassuring for this estimated gest age. We discussed f/u and discharge instructions. Code(s): Z3A.26 - 26 WEEKS GESTATION OF (2) Acute exacerbation of mild persistent extrinsic asthma Assessment/Plan: Pt reports improvement. Continue mgt per medical team D/c planning as per medicine team Code(s): J45.31 - MILD PERSISTENT ASTHMA WITH (ACUTE) EXACERBATION (3) Pneumonia affecting Assessment/Plan: Pt reports improvement. Continue mgt per medical team Code(s): O99.519 - DISEASES OF THE RESP SYS COMP , UNSP TRIMESTER; J18.9 - PNEUMONIA, UNSPECIFIED ORGANISM Qualifiers: Trimester: third trimester Qualified Code(s): O99.513 - Diseases of the respiratory system complicating , third trimester; J18.9 - Pneumonia, unspecified organism
--- NOTE | 2018-10-14 11:19 | PN ---
Progress Note (short form) - Note Progress Note: PULMONARY Breathing continues to improve but not at baseline. Has been ambulating. Peak flow done at bedside 350 which she reports is her best. Vital Signs Period Temp Pulse Resp BP Sys/[place] Pulse Ox Last 24 Hr 97.7 F-98.2 F 78-91 19-20 119-151/61-80 98-100 Gen: NAD at rest Heart: RRR Lung: decreased breath sounds at the bases, no wheezes appreciated Abd: soft, nontender Ext: no edema CBC, BMP 10/13/18 06:30 10/13/18 06:30 Active Medications Albuterol Sulfate (Ventolin 0.083% Nebulizer Soln -) 1 amp NEB RQID [facility] Last Admin: 10/14/18 08:02 Dose: 1 amp Azithromycin (Zithromax 500mg Ivpb (Pre-Docked)) 500 mg in 250 mls @ 250 mls/ hr IVPB DAILY [facility] Last Admin: 10/13/18 09:06 Dose: 250 mls/hr Ceftriaxone Sodium 1 gm/ (Dextrose) 50 mls @ 100 mls/hr IVPB DAILY [facility] Last Admin: 10/13/18 09:06 Dose: 100 mls/hr Melatonin (Melatonin) 3 mg PO HS PRN PRN Reason: INSOMNIA Last Admin: 10/13/18 21:32 Dose: 3 mg Methylprednisolone Sodium Succinate (Solu-Medrol -) 40 mg IVPUSH Q6H-IV [facility] Last Admin: 10/14/18 09:35 Dose: 40 mg Multivit/Folic Acid/Iron ( Vitamins (Sjr) -) 1 tab PO DAILY [facility] Last Admin: 10/14/18 09:35 Dose: 1 tab A/P Acute Asthma Exacerbation Pneumonia 26 weeks - will change steroids to PO prednisone 40mg daily and taper as outpt - inhaled bronchodilators - can resume symbicort when she goes home - complete antibiotics - DVT prophylaxis - outpt f/u
[2018-10-14] MEDS: AZITHROMYCIN IVPB 500 MG/250 ML BAG IVPB SCH (11:27)
[2018-10-14] MEDS ORDERED: cefTRIAXone SODIUM 1 GM VIAL ONE (11:30)
[2018-10-14] MEDS ORDERED: DEXTROSE 5%-WATER - 50 ML IVPB ONE (11:31)
[2018-10-14] MEDS: CEFTRIAXONE 1 GM in DEXTROSE 5%-WATER - 50 ML IVPB SCH (11:34)
[2018-10-14 12:10] VITALS: BP 130/65; PULSE 84; TEMP 98
--- NOTE | 2018-10-14 12:19 | DS ---
Physical Examination Vital Signs: Vital Signs Temperature 36.6 C 10/14/18 10:00 Pulse Rate 84 10/14/18 10:00 Respiratory Rate 20 10/14/18 10:00 Blood Pressure 130/65 10/14/18 10:00 O2 Sat by Pulse Oximetry (%) 98 10/14/18 09:00 Constitutional: Yes: Well Nourished, No Distress, Calm Cardiovascular: Yes: Regular Rate and Rhythm. No: Gallop, Murmur, Rub Respiratory: Yes: Regular, CTA Bilaterally. No: Rales, Rhonchi, Wheezes Gastrointestinal: Yes: Normal Bowel Sounds, Soft. No: Distention, Tenderness Extremities: Yes: WNL Edema: No Labs: CBC, BMP 10/13/18 06:30 10/13/18 06:30 Discharge Summary Reason For Visit: PNEUMONIA AFFECTING Current Active Problems Acute exacerbation of mild persistent extrinsic asthma (Acute) Pneumonia affecting (Acute) with 26 completed weeks gestation (Acute) Hospital Course: (1) Acute exacerbation of mild persistent extrinsic asthma Code(s): J45.31 - MILD PERSISTENT ASTHMA WITH (ACUTE) EXACERBATION (2) Pneumonia affecting Code(s): O99.519 - DISEASES OF THE RESP SYS COMP , UNSP TRIMESTER; J18.9 - PNEUMONIA, UNSPECIFIED ORGANISM Qualifiers: Trimester: third trimester Qualified Code(s): O99.513 - Diseases of the respiratory system complicating , third trimester; J18.9 - Pneumonia, unspecified organism Mrs Desai is a very pleasant 33 year old female who came in with asthma exacerbation secondary to pneumonia. She was admitted and seen by pulmonary and obstetrics (she is also in her second trimester). She was placed on albuterol nebulizers, solumedrol, zithromax, and rocephin. On admission she required oxygen, she has been successfully weaned off of oxygen and is stable on room air. She was followed by pulmonary and is safe for transition to prednisone with taper. She is also stable for transition to augmentin for a full course. She says she has taken augmentin in the past and tolerated it without issue. She is safe for discharge home. Condition: Good - Instructions Diet, Activity, Other Instructions: Please return to the emergency department with any new or worsening symptoms or concerns. Please follow up with your primary care physician within 72 hours. Disposition: HOME - Home Medications Comprehensive Discharge Medication List: Ambulatory Orders Budesonide/Formeterol Fumarate [SYMBICORT 160/4.5mcg -] 1 inh PO BID 10/10/18 Amox-Tr/K Cl [Augmentin - 875Mg Tablet] 1 tab PO BID #20 tablet 10/14/18 Lactobacillus Acidophilus [Acidophilus Lactobacilli] 1 each PO DAILY #30 capsule 10/14/18 Levalbuterol Tartrate [Levalbuterol Tartrate Hfa] 15 gm IH QID PRN #1 hfa.aer.ad 10/14/18 Vitamins (Sjr) - 1 tab PO DAILY #30 tablet 10/14/18 predniSONE [Deltasone -] 5 mg PO ASDIR #32 tab 10/14/18
== END 2018-10-14 14:57 | disposition home or self-care (01) | DRG 832 ==
LOC: JER 00:35 → JERBED 02:43 → UNDOADMIN 04:02 → J6S 06:51
PROVIDERS: ADMIT Internal Medicine; ATTEND Internal Medicine
DX: O99.512 Diseases of the respiratory system complicating pregnancy, second trimester (principal); J45.31 Mild persistent asthma with (acute) exacerbation; O99.112 Other diseases of the blood and blood-forming organs and certain disorders involving the immune mechanism complicating pregnancy, second trimester; D69.6 Thrombocytopenia, unspecified; O26.892 Other specified pregnancy related conditions, second trimester; F90.9 Attention-deficit hyperactivity disorder, unspecified type; G43.909 Migraine, unspecified, not intractable, without status migrainosus; Z3A.26 26 weeks gestation of pregnancy; Z88.0 Allergy status to penicillin
CPT/HCPCS: 36415; 36600; 80048; 80053; 80074; 82803; 83735; 84100; 84702; 85025; 85610; 86850; 86900; 86901; 87070; 87205; 87389; 87899; 93005; 93010; 94010; 94150; 94640; 99284-25

== ENCOUNTER 2019-01-01 03:27 | Inpatient (IN) | payer OTHER ==
[2019-01-01] MEDS ORDERED: ELECTROLYTE-148 SOLN 1,000 ML IV SCH ×2 (04:10→07:30)
[2019-01-01] MEDS: VANCOMYCIN 1 GM in D5W (PRE-DOCKED) 1,000 MG/250 ML IVPB SCH ×2 (05:15→21:46)
[2019-01-01 05:16] LABS: MCHC 34.3 g/dl (32.0-36.0)
[2019-01-01 05:26] LABS: BASO % 0.5 % (0-2.0); EOS % 0.9 % (0-4.5); HEMATOCRIT 36.6 % (32.4-45.2); HEMOGLOBIN 12.6 GM/dL (10.7-15.3); LYMPH % 17.4 % (8-40); MCH 27.9 pg (25.7-33.7); MEAN CELL VOLUME 81.4 fl (80-96); MEAN PLT VOLUME 9.3 fl (7.5-11.1); MONO % 4.8 % (3.8-10.2); NEUT % 76.4 % (42.8-82.8); PLATELET COUNT 130 K/MM3 (134-434); RDW 16.1 % (11.6-15.6); WHITE BLOOD COUNT 8.5 K/mm3 (4.0-10.0)
[2019-01-01 05:42] LABS: ANION GAP 9 MMOL/L (8-16); BLOOD UREA NITROGEN 7 mg/dL (7-18); CALCIUM 7.4 mg/dL (8.5-10.1); CHLORIDE 107 mmol/L (98-107); CO2 22 mmol/L (21-32); CREATININE 0.5 mg/dL (0.55-1.3); GLUCOSE,RANDOM 77 mg/dL (74-106); POTASSIUM 3.7 mmol/L (3.5-5.1); SODIUM 138 mmol/L (136-145)
[2019-01-01] MEDS ORDERED: BUTORPHANOL TARTRATE 1 MG/ML VIAL ONE ×2 (05:47)
[2019-01-01] MEDS ORDERED: PROMETHAZINE HCL 25 MG/1 ML VIAL ONE (05:47)
[2019-01-01 05:55] LABS: PROTHROMBIN TIME (PATIENT) 11.8 SEC (9.7-13.0)
[2019-01-01 05:58] LABS: ACTIVATED PTT 29.9 SECONDS (25.2-36.5)
--- NOTE | 2019-01-01 06:37 | PN ---
Progress Note, Labor Vaginal Exam #1 Labor Exam Date: 01/01/19 Labor Exam Time: 06:15 Heart Rate (range): 140 Dilatation: 5 Effacement (%): 90% Amniotic Membrane Status: Ruptured Station: -2 (Called to pt because of episode of bradykardia for 5-6 min. down to 70. Recovered w LLP and O2. Internal lead applied. Completed ROM. Clear AF. Contact inadequate - back to external lead. FH recovered. Discussed w the couple. Observe. Allow labor to continue.)
[2019-01-01 06:47] VITALS: BMI 40.0
[2019-01-01] MEDS ORDERED: FENTANYL/BUPIVACAINE/NS/PF - PCEA - 50 ML DISP.SYRIN EP ONE ×3 (07:21→16:11)
--- NOTE | 2019-01-01 07:49 | HP ---
Past Medical History - Primary Care Physician PCP:: Everett Pandey - Admission Chief Complaint: 33yo P0 with at EGA 38w1d admitted with spontaneous labor. History of Present Illness: Pt presented in spont labor and painful contractions since 10:30pm last night. She was noted to be 3cm dilated at 4:10am. Vancomycin was given IV for GBS prophylaxis. The pt requested IV pain medications and was given Stadol/ phenergan IV at 5:50am. The pt had SROM a spontaneous bradycardia of FHR at about 6:07am x 6min that recovered with position change and O2 by mask. Since the pt was moving due pain and multiple incidents of loss of contact were noted during monitoring, FSE was applied at 6:40. The pt was noted to be 5cm dilated/90%/-2. 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: Yes: Migraine Cardiovascular: No: AFIB, Aneurysm, Aortic Insufficiency, Aortic Stenosis, CAD, CHF, Deep Vein Thrombosis, HTN, Hyperlipdemia, [place], Mitral Insufficiency, Mitral Stenosis, Murmur, Pulmonary Hypertension, Other Pulmonary: Yes: Asthma Gastrointestinal: Yes: Other (Celiac disease) Hepatobiliary: No: Cirrhosis, Cholelithiasis, Cholecystitis, Choledocholithiasis , Hepatitis A, Hepatitis B, Hepatitis C, Other Renal/: No: Renal Failure, Renal Inusuff, BPH, Cancer, Hematuria, Hemodialysis , Neurogenic Bladder, Renal Calculi, UTI, Other Reproductive: No: Ectopic , Endometriosis, Fibroids, PID, Polycystic Ovary Syndrome, Postmenopausal, Other ...: 1 ...Para: 0 ...Term: 0 ...: 0 ...Spon : 0 ...Induced : 0 ...Multiple Gestation: 0 ...LMP: 04/07/18 ... Weeks Gestation by Dates: 38.3 ...EDC by Dates: 01/12/19 ...EDC by Sono: 01/14/19 Heme/Onc: No: Anemia, B12 Deficiency, Bleeding Disorder, Cancer, Current Chemotherapy, Current Radiation Therapy, Hemochromatosis, Hypercoaguable State, Myeloproliferative Synd, Sickle Cell Disease, Sickle Cell Trait, Thrombocytopenia, Other Infectious Disease: No: AIDS, C-Diff, Herpes Zoster, HIV, MRSA, STD's, Tuberculosis, VREF, Other Psych: Yes: Other (ADHD) Musculoskeletal: No: Bursitis, Chronic low back pain, Hemiparesis, Hemiplegia, Osteoarthritis, Paraplegia, Other Rheumatology: No: Fibromyalgia, Gout, Lupus, Rheumatoid Arthritis, Sarcoidosis, Vasculitis, Other ENT: No: Allergic Rhinitis, Sinusitis, Other Endocrine: No: Glenn's Disease, Israel's Disease, Diabetes Insipidus, Diabetes Mellitus, Hyperparathyroidism, Hyperthyroidism, Hypothyroidism, Osteopenia, SIADH, Other Dermatology: No: Basal Cell, Cellulitis, Eczema, Melanoma, Psoriasis, Squamous Cell, Other Additional Medical History: Obesity - Past Surgical History Hx Myomectomy: No Hx Transabdominal Cerclage: No Additional Surgical History: Right hand surgery, tonsillectomy, LEEP 2007 - Smoking History Smoking history: Never smoked Have you smoked in the past 12 months: No - Alcohol/Substance Use Hx Alcohol Use: No History of Substance Use: reports: None - Social History Usual Living Arrangement: Yes: With Spouse ADL: Independent 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 History of Recent Travel: No Home Medications - Allergies Allergies/Adverse Reactions: Allergies Allergy/AdvReac Type Severity Reaction Status Date / Time Penicillins Allergy Rash Verified 01/01/19 04:05 - Home Medications Home Medications: Ambulatory Orders SYMBICORT 80/4.5mcg - PO DAILY 01/01/19 Review of Systems - Review of Systems Constitutional: reports: Other (Labor/contractions) Eyes: reports: No Symptoms HENT: reports: No Symptoms Neck: reports: No Symptoms Cardiovascular: reports: No Symptoms Respiratory: reports: No Symptoms Gastrointestinal: reports: No Symptoms Genitourinary: reports: No Symptoms Breasts: reports: No Symptoms Reported Musculoskeletal: reports: No Symptoms Integumentary: reports: No Symptoms Neurological: reports: No Symptoms Endocrine: reports: No Symptoms Hematology/Lymphatic: reports: No Symptoms Psychiatric: reports: No Symptoms Pain Intensity: 9 Physical Exam - Maternity Vital Signs: Vital Signs Temperature 97.9 F 01/01/19 04:10 Pulse Rate 79 01/01/19 06:45 Respiratory Rate 01/01/19 06:45 Blood Pressure 126/69 01/01/19 06:45 O2 Sat by Pulse Oximetry (%) Constitutional: Yes: Moderate Distress, Obese Eyes: Yes: WNL, Conjunctiva Clear, EOM Intact HENT: Yes: WNL, Atraumatic, Normocephalic Neck: Yes: WNL, Supple, Trachea Midline Cardiovascular: Yes: WNL, Regular Rate and Rhythm Lungs: Clear to auscultation, Normal air movement Breast(s): Yes: WNL - Abdominal Exam/OB Fundal Height: 39 Number of Fetuses: Single Presentation: Vertex Contractions: Yes Regularity: Regular Intensity: Mod/Strong Monitor Mode: External Heart Rate (range): 135 Category: II (s/p Stadol & Phenergan) Accelerations: None Decelerations: None - Vaginal Exam/OB Vaginal Bleediing: Yes, Light Speculum Exam: No Dilatation (cm): 5 Effacement (%): 90 Amniotic Membrane Status: Leaking Amniotic Fluid: Yes: Clear Presentation: Vertex/Position Station: -2 - Physical Exam Musculoskeletal: Yes: WNL Extremities: Yes: WNL Edema: No Edema: LLE: Trace, RLE: Trace Integumentary: Yes: WNL Deep Tendon Reflex Grade: Normal +2 ...Motor Strength: WNL Psychiatric: Yes: WNL, Alert, Oriented - Labs Lab Results: CBC, BMP 01/01/19 05:00 01/01/19 05:00 Hemorrhage Risk Assessment - Risk Factors Medium Risk Factors: Yes: Obesity (BMI >40) High Risk Factors: Yes: None Risk Score: 1 Risk Level: Medium Risk Imaging - Results Ultrasound: Report Reviewed Assessment/Plan 33yo P0 with at EGA 38w1d admitted with spontaneous labor. 1. Fetus with Category I tracing and does not require intervention 2. Labor progressed to active phase spontaneously. Plan to monitor progress. Adequate gynecoid pelvimetry. EFW ~3300g by Yamil maneuvers 3. Pain mgt- pt requested to have epidural and anesthesia is at bedside 4. Obesity- we discussed the risk of shoulder dystocia, surgical and anesthesia risks 5. Asthma- asymptomatic
[2019-01-01] MEDS ORDERED: NALOXONE HCL 0.4 MG/ML VIAL IVPUSH PRN (08:34)
[2019-01-01] MEDS ORDERED: FENTANYL/BUPIVACAINE/NS/PF - PCEA - 50 ML DISP.SYRIN EP SCH (08:45)
[2019-01-01] MEDS ORDERED: TUBERCULIN PPD 5 TU/0.1ML SYRINGE (IN PATIENT USE ONLY) ID ONE (09:00)
[2019-01-01] MEDS ORDERED: OXYTOCIN 20 UNITS in 0.9% NS 20 UNIT/1,000 ML INFUS.BAG IV ONE ×2 (09:33→15:46)
--- NOTE | 2019-01-01 13:14 | PN ---
Ante-Partal Exam - Subjective Subjective: Patient reports increased pressure Vital Signs: Vital Signs Temperature 97.8 F 01/01/19 10:00 Pulse Rate 60 01/01/19 12:45 Respiratory Rate 18 01/01/19 12:45 Blood Pressure 106/61 01/01/19 12:45 O2 Sat by Pulse Oximetry (%) 99 01/01/19 12:45 Bleeding: No Headache: No Visual changes: No Right upper quadrant pain: No - Contractions Contractions: Yes Intensity: Unaware Monitor Mode: External - Exam during Labor Heart Rate: 150 Variability: Moderate Category: I Monitor Accelerations: Present Monitor Decelerations: Variable Exam: Vaginal Dilatation (cm): 8 Effacement (%): 100 Amniotic Membrane Status: Ruptured Presentation: Vertex Station: +1 - Intrapartum Hemorrhage Risk Medium Risk Factors: None High Risk Factors: None Risk Score: 0 Risk Level: Low Risk - Assessment/Plan Assessment/Plan: 33 yo active labor 1. Cervical change noted 2. GBS positive - on vancomycin 3. Category II FHT 4. Pain well controlled on epidural 5. Will proceed with expectant management
[2019-01-01] MEDS ORDERED: LIDOCAINE HCL 1% PRESERVATIVE FREE - 30ML VIAL ONE (15:46)
[2019-01-01] MEDS ORDERED: OXYTOCIN 30 UNITS in 0.9% NS 30 UNIT/500 ML INFUS.BAG IVPB SCH (16:45)
--- NOTE | 2019-01-01 16:53 | PN ---
Ante-Partal Exam - Subjective Subjective: No complaints, comfortable. Vital Signs: Vital Signs Temperature 98.0 F 01/01/19 14:00 Pulse Rate 62 01/01/19 16:44 Respiratory Rate 18 01/01/19 16:44 Blood Pressure 101/52 L 01/01/19 16:44 O2 Sat by Pulse Oximetry (%) 99 01/01/19 16:44 Bleeding: No Headache: No Visual changes: No Right upper quadrant pain: No Pain (scale 1-10): 0 - Contractions Contractions: Yes Regularity: Regular Intensity: Unaware Monitor Mode: External - Exam during Labor Heart Rate: 140 Variability: Moderate Category: II Monitor Accelerations: Present (scalp stim) Monitor Decelerations: Variable Exam: Vaginal Dilatation (cm): 9.5 Effacement (%): 100 Amniotic Membrane Status: Leaking Presentation: Vertex Station: +1 - Intrapartum Hemorrhage Risk Medium Risk Factors: None High Risk Factors: None Risk Score: 0 Risk Level: Low Risk - Assessment/Plan Assessment/Plan: 33yo P0 at EGA 38wk, progressed is active labor. Fetus with Category II tracing. The pt is changing position and O2 mask is used. Plan to start amnioinfusion if variable decels don't resolve.
--- NOTE | 2019-01-01 19:02 | PROC ---
Obstetrical Vaccum Device - Doc. Following Use of Vaccum Device Indications for use: Bradycardia Risks and Benefits Explained: Yes Consent on Chart: Yes Dilation (0-10): 10 Station: 3 Molding: Yes Position: OA Caput: Yes Proper placement of cup confirmed: Yes Number of pulls: 1 Number of pop-offs: 0 Duration of time cup on head (min): 1 (less than 1 min) Maximum pressure attained: 40 Total time cup near/at maximum pressure (min): 0 (30 sec) Reduction of pressure between contractions: Yes Outcome: Successful Appearance of head on delivery: Normal Mat Repairer present during vacuum extraction: Yes Mat Repairer & nursery staff notified of vacuum extraction: Yes
[2019-01-01] MEDS ORDERED: BENZOCAINE 20% 57 GM BOTTLE TP PRN (19:08)
[2019-01-01] MEDS ORDERED: BENZOCAINE 28 GM HEMORRHOIDAL OINTMENT TP PRN (19:08)
[2019-01-01] MEDS ORDERED: WITCH HAZEL 50% (TUCKS) 40 PAD/JAR PAD TP PRN (19:08)
[2019-01-01] MEDS ORDERED: METHYLERGONOVINE MALEATE 0.2 MG/1 ML AMP IM PRN (19:08)
[2019-01-01] MEDS ORDERED: BISACODYL 10 MG SUPP.RECT RC PRN (19:08)
--- NOTE | 2019-01-01 19:17 | PN ---
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 Vacuume was applied due to bradycardia
[2019-01-01 19:30] LABS: ARTERIAL BLOOD GAS BASE EXCESS -4.4 meq/l (-2-2)
[2019-01-01 19:32] LABS: ARTERIAL BLOOD GAS pH 7.21 (7.35-7.45)
[2019-01-01 19:33] LABS: ARTERIAL BLD GAS O2 SATURATION 32.8 % (90-98.9); ARTERIAL BLOOD GAS PCO2 63.9 mmHg (35-45); ARTERIAL BLOOD GAS PO2 25.2 mmHg (80-100); VENOUS PC02 44.8 mmHg (38-52); VENOUS PH 7.3 (7.32-7.42); VENOUS PO2 29.3 mmHg (28-48)
[2019-01-01] MEDS: D5W-LR W/ 20 UNITS OXYTOCIN 20 UNIT/1,000 ML INFUS.BAG IV SCH ×2 (21:46→23:30)
[2019-01-01] MEDS: ACETAMINOPHEN 325 MG TABLET (FP) PO PRN (21:54)
[2019-01-01] MEDS: IBUPROFEN 600 MG TABLET (FP) PO PRN (21:54)
[2019-01-02] MEDS: ACETAMINOPHEN 325 MG TABLET (FP) PO PRN ×3 (03:48→20:24)
[2019-01-02] MEDS: IBUPROFEN 600 MG TABLET (FP) PO PRN ×4 (03:49→20:23)
[2019-01-02 08:21] LABS: BASO % 0.7 % (0-2.0); EOS % 0.7 % (0-4.5); HEMATOCRIT 38.7 % (32.4-45.2); HEMOGLOBIN 13.1 GM/dL (10.7-15.3); MCH 28.9 pg (25.7-33.7); MCHC 33.8 g/dl (32.0-36.0); MEAN CELL VOLUME 85.3 fl (80-96); MEAN PLT VOLUME 9.8 fl (7.5-11.1); MONO % 4.7 % (3.8-10.2); NEUT % 75.9 % (42.8-82.8); RBC 4.54 M/mm3 (3.60-5.2); RDW 16.3 % (11.6-15.6); WHITE BLOOD COUNT 9.5 K/mm3 (4.0-10.0)
--- NOTE | 2019-01-02 08:33 | PN ---
Post Progress Note - Subjective Subjective: Patient without acute complaints. Reports tolerating oral intake without nausea or vomiting. Ambulating without dizziness. Denies fevers or chills. Pain well controlled with oral pain medication. without difficulty. Passing flatus. Post Day: 1 Type of Delivery: Vacuum Assist Vag Del Vital Signs: Vital Signs Temperature 97.7 F 01/02/19 06:00 Pulse Rate 74 01/02/19 06:00 Respiratory Rate 18 01/02/19 06:00 Blood Pressure 113/71 01/02/19 06:00 O2 Sat by Pulse Oximetry (%) 100 01/01/19 19:15 Breast Exam: Yes: Soft Uterus: Yes: Fundus Firm, Fundus below umbilicus Abdomen/GI: Yes: Abdomen soft, Passing flatus, Tolerating PO. No: Abdominal Distention, Tender Lochia: Yes: Serosa Lochia, amount: Moderate Extremities: Yes: Calves non-tender, Edema Perineum: Yes: Laceration Activity: Ambulating - Labs Labs: CBC WBC 8.5 K/mm3 (4.0-10.0) 01/01/19 05:00 RBC 4.50 M/mm3 (3.60-5.2) 01/01/19 05:00 Hgb 12.6 GM/dL (10.7-15.3) 01/01/19 05:00 Hct 36.6 % (32.4-45.2) 01/01/19 05:00 MCV 81.4 fl (80-96) 01/01/19 05:00 MCH 27.9 pg (25.7-33.7) 01/01/19 05:00 MCHC 34.3 g/dl (32.0-36.0) 01/01/19 05:00 RDW 16.1 % (11.6-15.6) H 01/01/19 05:00 Plt Count 130 K/MM3 (134-434) L 01/01/19 05:00 MPV 9.3 fl (7.5-11.1) 01/01/19 05:00 Absolute Neuts (auto) 6.5 K/mm3 (1.5-8.0) 01/01/19 05:00 Neutrophils % 76.4 % (42.8-82.8) 01/01/19 05:00 Lymphocytes % 17.4 % (8-40) D 01/01/19 05:00 Monocytes % 4.8 % (3.8-10.2) 01/01/19 05:00 Eosinophils % 0.9 % (0-4.5) D 01/01/19 05:00 Basophils % 0.5 % (0-2.0) D 01/01/19 05:00 Nucleated RBC % 0 % (0-0) 01/01/19 05:00 Assessment/Plan 33 yo PPD # 1 s/p VAVD, afebrile, vital signs stable, doing well 1. Continue routine care. 2. CBC without signs of anemia 3. Rh positive status, no rhogam indicated. 4. Encourage ambulation 5. Continue oral pain medication 6. Anticipate discharge home day #2
[2019-01-02] MEDS: PRENATAL VITAMINS W/ FOLIC ACID TABLET (FP) PO SCH (09:52)
[2019-01-02] MEDS ORDERED: PNEUMOC 13-VAL CONJ-DIP CRM/PF 0.5 ML DISP.SYRIN IM ONE (10:00)
[2019-01-02] MEDS ORDERED: PNEUMOCOCCAL 23 VACCINE 0.5 ML VIAL IM ONE (10:00)
[2019-01-02 10:53] LABS: PLATELET COUNT 74 K/MM3 (134-434)
--- NOTE | 2019-01-02 11:57 | DS ---
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 Vital Signs: Vital Signs Temperature 97.7 F 01/02/19 10:00 Pulse Rate 76 01/02/19 10:00 Respiratory Rate 18 01/02/19 10:00 Blood Pressure 120/65 01/02/19 10:00 O2 Sat by Pulse Oximetry (%) 100 01/01/19 19:15 Labs: CBC, BMP 01/02/19 07:30 01/01/19 05:00 Delivery - Delivery Vaginal Delivery: Vacuum Assist Type of Anesthesia: Local, Epidural Episiotomy/Laceration: Midline EBL (cc): 300 Delivery, Single - Stages of Labor Date 1st Stage Initiatied: 01/01/19 Time 1st Stage Initiated: 05:00 Date 2nd Stage Initiated: 01/01/19 Time 2nd Stage Initiated: 17:00 Date of Delivery: 01/01/19 Time of Delivery: 18:06 Time Placenta Delivered: 18:10 Placenta: Yes: Spontaneous, Normal Configuration - 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 She progressed to deliver via VAVD a viable male infant. PPD # 1 patient ambulated, voiding, passing gas, tolerating oral intake and with adequate pain control. She fulfilled all criteria for discharge PPD #2 Condition: Good - Instructions Diet, Activity, Other Instructions: Physical activity Resume your normal everyday activity as tolerated no heavy lifting or exercise until seen by your surgeon. You may walk unlimited maurice of and climb stairs. You may resume driving the car when you feel safe and comfortable behind the wheel. No sexual activity as instructed. Diet There are no dietary restrictions. Eat healthy, high-fiber foods. Drink 6 to 8 glasses of liquid each day. This will assist in keeping your bowels are regular. Pain management You may take Tylenol or acetaminophen or Ibuprofen (for example, Motrin, Advil etc.) from my pain prescription medication is ordered should be taken as prescribed for moderate to severe pain. Call MD for any of the following: Severe pain not relieved by medication Fever of 101 or higher Excessive bleeding or drainage on dressing Inability to urinate Referrals: Everett Pandey MD [Staff Physician] - Disposition: HOME - Home Medications Comprehensive Discharge Medication List: Ambulatory Orders SYMBICORT 80/4.5mcg - PO DAILY 01/01/19
[2019-01-02 17:27] LABS: BASO % 0.4 % (0-2.0); EOS % 1.5 % (0-4.5); HEMATOCRIT 34.2 % (32.4-45.2); HEMOGLOBIN 11.7 GM/dL (10.7-15.3); LYMPH % 17.4 % (8-40); MCH 28.8 pg (25.7-33.7); MCHC 34.3 g/dl (32.0-36.0); MEAN CELL VOLUME 83.9 fl (80-96); MEAN PLT VOLUME 9.7 fl (7.5-11.1); MONO % 4.5 % (3.8-10.2); NEUT % 76.2 % (42.8-82.8); PLATELET COUNT 133 K/MM3 (134-434); RBC 4.08 M/mm3 (3.60-5.2); RDW 15.9 % (11.6-15.6); WHITE BLOOD COUNT 9.8 K/mm3 (4.0-10.0)
[2019-01-02] MEDS ORDERED: SENNOSIDES/DOCUSATE COMBO (SENNA PLUS) TABLET (UD) PO PRN (22:00)
[2019-01-03] MEDS: ACETAMINOPHEN 325 MG TABLET (FP) PO PRN (03:36)
[2019-01-03] MEDS: IBUPROFEN 600 MG TABLET (FP) PO PRN (03:37)
--- NOTE | 2019-01-03 07:22 | PN ---
Progress Note (short form) - Note Progress Note: ppd 2 , no c/o , voids ok CBC, BMP 01/02/19 16:30 01/01/19 05:00 Last Vital Signs Temp Pulse Resp BP Pulse Ox 97.6 F 96 H 18 141/83 100 01/02/19 22:00 01/02/19 22:00 01/02/19 22:00 01/02/19 22:00 01/01/19 19:15 uterus firm, non tender lochia mild no calf tenderness plan d/c home, follow up office 4 weeks
[2019-01-03 08:33] VITALS: BP 132/81; PULSE 74; TEMP 97.9
[2019-01-03] MEDS: PRENATAL VITAMINS W/ FOLIC ACID TABLET (FP) PO SCH (09:27)
== END 2019-01-03 12:05 | disposition home or self-care (01) | DRG 560 ==
LOC: JDEL 03:27 → JLDR 04:10 → J3W 19:45
PROVIDERS: ADMIT Obstetrics & Gynecology; ATTEND Obstetrics & Gynecology
PROC: 10D07Z6 Extraction of Products of Conception, Vacuum, Via Natural or Artificial Opening (ICD-10-PCS; principal; 2019-01-01)
PROC: 0W8NXZZ Division of Female Perineum, External Approach (ICD-10-PCS; 2019-01-01)
DX: O99.824 Streptococcus B carrier state complicating childbirth (principal); E66.9 Obesity, unspecified; O76 Abnormality in fetal heart rate and rhythm complicating labor and delivery; O99.213 Obesity complicating pregnancy, third trimester; O26.893 Other specified pregnancy related conditions, third trimester; J45.909 Unspecified asthma, uncomplicated; Z3A.00 Weeks of gestation of pregnancy not specified; Z3A.38 38 weeks gestation of pregnancy; Z37.0 Single live birth
CPT/HCPCS: 36415; 36600; 59409; 80048; 82803; 85025; 85610; 85730; 86593; 86850; 86900; 86901; 90732; G0009

== ENCOUNTER 2021-04-12 04:15 | Inpatient (IN) | payer BC, OTHER ==
[~2021-04-12 04:15] MED LIST: ELECTROLYTE-148 SOLN 1,000 ML IV SCH
[2021-04-12] MEDS ORDERED: CLINDAMYCIN 900 MG PREMIX IVPB 900 MG/50 ML BAG IVPB ONE (05:25)
[2021-04-12 05:28] LABS: BASO % 0.4 % (0-2.0); EOS % 0.8 % (0-4.5); HEMATOCRIT 39.1 % (32.4-45.2); HEMOGLOBIN 13.3 GM/dL (10.7-15.3); LYMPH % 16.4 % (8-40); MCH 27.8 pg (25.7-33.7); MCHC 33.9 g/dl (32.0-36.0); MEAN PLT VOLUME 8.6 fl (7.5-11.1); MONO % 4.4 % (3.8-10.2); PLATELET COUNT 143 K/MM3 (134-434); RBC 4.77 M/mm3 (3.60-5.2); RDW 16.3 % (11.6-15.6); WHITE BLOOD COUNT 9.7 K/mm3 (4.0-10.0)
[2021-04-12] MEDS ORDERED: CLINDAMYCIN 900 MG PREMIX IVPB 900 MG/50 ML BAG IVPB SCH (05:30)
[2021-04-12] MEDS ORDERED: BUTORPHANOL TARTRATE 2 MG/ML VIAL ONE (05:31)
[2021-04-12] MEDS ORDERED: PROMETHAZINE HCL 25 MG/1 ML VIAL ONE (05:31)
[2021-04-12 05:36] LABS: PROTHROMBIN TIME (PATIENT) 12.1 SEC (9.7-13.0)
[2021-04-12 05:38] LABS: ACTIVATED PTT 27.8 SECONDS (25.2-36.5)
[2021-04-12] MEDS ORDERED: BUTORPHANOL TARTRATE 2 MG/ML VIAL IVPB ONE (05:40)
[2021-04-12] MEDS ORDERED: PROMETHAZINE HCL 25 MG/1 ML VIAL IVPB ONE (05:40)
[2021-04-12 05:48] LABS: BLOOD UREA NITROGEN 6.8 mg/dL (7-18)
[2021-04-12 05:52] LABS: CREATININE 0.4 mg/dL (0.55-1.3)
[2021-04-12 06:34] VITALS: BMI 40.1
[2021-04-12] MEDS ORDERED: FENTANYL/BUPIVACAINE/NS/PF - PCEA - 50 ML DISP.SYRIN EP ONE (08:17)
[2021-04-12] MEDS ORDERED: PCA PUMP NR ONE (08:17)
[2021-04-12] MEDS ORDERED: NALOXONE HCL 0.4 MG/ML VIAL IVPUSH PRN (10:06)
[2021-04-12] MEDS ORDERED: FENTANYL/BUPIVACAINE/NS/PF - PCEA - 50 ML DISP.SYRIN EP SCH (10:15)
[2021-04-12] MEDS ORDERED: LIDOCAINE HCL 1% PRESERVATIVE FREE - 30ML VIAL ONE (11:11)
[2021-04-12] MEDS ORDERED: OXYTOCIN 20 UNITS in 0.9% NS 20 UNIT/1,000 ML INFUS.BAG IV ONE ×2 (11:11→12:41)
[2021-04-12] MEDS: OXYTOCIN 20 UNITS in 0.9% NS 20 UNIT/1,000 ML INFUS.BAG IV SCH ×2 (11:30→12:41)
[2021-04-12 12:35] LABS: CORD BASE EXCESS -5.3 mmol/L (0-2); CORD HCO3 20.5 mmHg (20-29); CORD PCO2 40.7 mmHg (30-78); CORD pH 7.319 (7.14-7.44)
[2021-04-12 12:52] LABS: POC NITRAZINE POS
[2021-04-12] MEDS ORDERED: D5W-LR W/ 20 UNITS OXYTOCIN 20 UNIT/1,000 ML INFUS.BAG IV SCH (13:00)
[2021-04-12] MEDS ORDERED: METHYLERGONOVINE MALEATE 0.2 MG/1 ML AMP IM PRN (13:00)
[2021-04-12] MEDS ORDERED: BENZOCAINE 28 GM HEMORRHOIDAL OINTMENT TP PRN (13:00)
[2021-04-12] MEDS ORDERED: BISACODYL 10 MG SUPP.RECT RC PRN (13:00)
[2021-04-12] MEDS ORDERED: BENZOCAINE 20% 57 GM BOTTLE TP PRN (13:00)
[2021-04-12] MEDS ORDERED: WITCH HAZEL 50% (TUCKS) 40 PAD/JAR PAD TP PRN (13:00)
[2021-04-12] MEDS ORDERED: OXYTOCIN 30 UNITS in 0.9% NS 30 UNIT/500 ML INFUS.BAG IVPB SCH (13:15)
[2021-04-12] MEDS: IBUPROFEN 600 MG TABLET (FP) PO PRN ×2 (14:34→18:12)
[2021-04-12] MEDS: ACETAMINOPHEN 325 MG TABLET (FP) PO PRN ×2 (14:35→18:12)
[2021-04-13] MEDS: IBUPROFEN 600 MG TABLET (FP) PO PRN ×4 (02:19→20:41)
[2021-04-13] MEDS: ACETAMINOPHEN 325 MG TABLET (FP) PO PRN ×4 (02:20→20:41)
[2021-04-13 08:34] LABS: BASO % 0.2 % (0-2.0); EOS % 1.8 % (0-4.5); HEMATOCRIT 35.8 % (32.4-45.2); HEMOGLOBIN 11.9 GM/dL (10.7-15.3); LYMPH % 14.8 % (8-40); MCHC 33.3 g/dl (32.0-36.0); MEAN CELL VOLUME 83.9 fl (80-96); MONO % 3.5 % (3.8-10.2); NEUT % 79.7 % (42.8-82.8); PLATELET COUNT 129 K/MM3 (134-434); RBC 4.27 M/mm3 (3.60-5.2); RDW 16.2 % (11.6-15.6); WHITE BLOOD COUNT 7.4 K/mm3 (4.0-10.0)
[2021-04-13] MEDS ORDERED: SENNOSIDES/DOCUSATE COMBO (SENNA PLUS) TABLET (UD) PO PRN (22:00)
[2021-04-13 22:19] VITALS: PULSE 78
[2021-04-14] MEDS: ACETAMINOPHEN 325 MG TABLET (FP) PO PRN (05:45)
[2021-04-14] MEDS: IBUPROFEN 600 MG TABLET (FP) PO PRN (05:47)
[2021-04-14 09:37] VITALS: BP 135/81; TEMP 98.7
== END 2021-04-14 11:00 | disposition home or self-care (01) | DRG 807 ==
LOC: JLDR 04:15 → J3W 14:13
PROVIDERS: ADMIT Obstetrics & Gynecology; ATTEND Obstetrics & Gynecology
PROC: 0W8NXZZ Division of Female Perineum, External Approach (ICD-10-PCS; principal; 2021-04-12)
PROC: 10E0XZZ Delivery of Products of Conception, External Approach (ICD-10-PCS; 2021-04-12)
DX: O42.02 Full-term premature rupture of membranes, onset of labor within 24 hours of rupture (principal); Z37.0 Single live birth; O99.214 Obesity complicating childbirth; E66.01 Morbid (severe) obesity due to excess calories; O69.81X0 Labor and delivery complicated by cord around neck, without compression, not applicable or unspecified; O99.824 Streptococcus B carrier state complicating childbirth; O70.1 Second degree perineal laceration during delivery; Z3A.40 40 weeks gestation of pregnancy; Z87.19 Personal history of other diseases of the digestive system; Z87.09 Personal history of other diseases of the respiratory system
CPT/HCPCS: 36415; 36600; 59409; 80048; 82803; 83986-QW; 85025; 85610; 85730; 86780; 86850; 86900; 86901; C9803; U0003; U0005

== ENCOUNTER 2022-11-21 04:21 | Day surgery (SDC) | payer BC ==
[2022-11-20 17:56] VITALS: BMI 37.9
[2022-11-21] MEDS ORDERED: ACETAMINOPHEN 325 MG TABLET (FP) PO PRN (07:14)
[2022-11-21] MEDS ORDERED: ONDANSETRON 4 MG/2 ML VIAL IVPUSH PRN (07:14)
[2022-11-21] MEDS ORDERED: LACTATED RINGERS SOLUTION 1,000 ML IV SCH (07:15)
[2022-11-21] MEDS ORDERED: LIDOCAINE HCL/PF 2% SDV 5ML VIAL ONE (07:16)
[2022-11-21] MEDS ORDERED: FENTANYL CITRATE/PF 50 MCG/ML VIAL ONE (07:19)
[2022-11-21] MEDS ORDERED: DEXAMETHASONE SOD PHOSPHATE 4 MG/1 ML VIAL ONE (07:19)
[2022-11-21] MEDS ORDERED: PROPOFOL 40 ML ONE (07:19)
[2022-11-21] MEDS ORDERED: MIDAZOLAM HCL 2 MG/2 ML SINGLE DOSE VIAL ONE (07:19)
[2022-11-21] MEDS ORDERED: SUCCINYLCHOLINE CHLORIDE 200 MG/10 ML SYRINGE ONE (07:25)
[2022-11-21] MEDS ORDERED: CLINDAMYCIN 600 MG PREMIX BAG IVPB ONE (07:55)
[2022-11-21] MEDS ORDERED: CLINDAMYCIN 600MG PREMIX IVPB 600 MG/50 ML BAG IVPB ONE (07:58)
[2022-11-21 10:58] VITALS: RESP 20; TEMP 97.5
[2022-11-21 11:41] VITALS: BP 112/64; PULSE 69
== END 2022-11-21 10:13 | disposition home or self-care (01) ==
LOC: JASU-SURG 04:21
PROVIDERS: ATTEND Obstetrics & Gynecology
PROC: 10D17ZZ Extraction of Products of Conception, Retained, Via Natural or Artificial Opening (ICD-10-PCS; principal; 2022-11-21 07:30)
DX: O03.4 Incomplete spontaneous abortion without complication (principal)
CPT/HCPCS: 88305-TC; 94760